=== PATIENT | female | born 1960 | race Caucasian/White ===

== ENCOUNTER 2019-09-26 16:10 | Emergency (ER) | payer OTHER, SELFPAY ==
--- NOTE | ~2019-09-26 | CT_ITS ---
IMPRESSION: 1. Left UPJ 6 mm stone, mild obstructive nephropathy. 2. Left nephrolithiasis. EXAMINATION: CT abdomen pelvis w con EXAM DATE: 09/26/2019 17:47 INDICATION: Left lower quadrant pressure/pain. Nausea, elevated lactate. TECHNIQUE: Spiral CT of the abdomen and pelvis was performed following intravenous injection of 100 m L Omnipaque 350. Axial, coronal and sagittal images were reviewed. The dose-length product (DLP) fo r this examination was 707.05 mGy-cm. The exposure was tailored according to patient size (auto mA e xposure control), and iterative reconstruction (ASIR) was used as additional dose reduction technique . Comparison is made to prior examination from 05/27/2013. FINDINGS: There is a 6 mm stone in the left ureteropelvic junction, with mild obstructive nephropathy , and also delayed nephrogram. No other ureteral stones. There is a 1 cm left superior calyceal stone . The liver, spleen, adrenal glands and pancreas are unremarkable. Gallbladder is unremarkable. No biliary obstruction. The uterus is anteverted and morphologically normal. The bladder is unremark able. There is no retroperitoneal or pelvic lymphadenopathy. There is mild scattered arteriosclero tic disease. The appendix is normal. The stomach and small bowel are unremarkable. There is expected amount of c olonic stool. No free intraperitoneal gas. The heart is normal in size. There are no pericardial or pleural effusions. The lung bases are unremarkable. The bones are unremarkable. IMPRESSION: 1. Left UPJ 6 mm stone, mild obstructive nephropathy. 2. Left nephrolithiasis. Reviewed, dictated and finalized at location A.
[2019-09-26 16:22] VITALS: BP 163/88; PULSE 77; RESP 18; TEMP 36.4; O2SAT 98
--- NOTE | 2019-09-26 16:32 | ECG_ITS ---
Measurements Intervals [place] Rate: 77 P: 59 WI: 184 QRS: 82 QRSD: 91 T: 82 QT: 356 QTc: 403 Interpretive Statements SINUS RHYTHM INCOMPLETE RIGHT BUNDLE BRANCH BLOCK DELAYED PRECORDIAL R/S TRANSITION NONSPECIFIC T-WAVE ABNORMALITY- ANT/HIGH LAT LEADS BASELINE ARTIFACT- I, II, III, AVR, AVL, AVF, V4-V6 BORDERLINE ECG Electronically Signed On 09-26-2019 17:05:44 CDT by Uriel Plunkett D.O.
[2019-09-26 16:45] LABS: Hematocrit 36.8 % (35.0-49.0); Hemoglobin 12.6 g/dL (12.0-15.0); Mean Corpuscular HGB Conc 34.2 g/dL (32.0-36.0); Mean Corpuscular Volume 90.4 fL (78.0-102.0); Mean Platelet Volume 10.2 fl (9.2-11.8); Platelet Count Result 236 K/mm3 (150-420); Red Blood Count 4.07 M/mm3 (4.20-5.40); Red Cell Distribution Width 12.6 % (11.6-14.4); White Blood Count 12.6 K/mm3 (4.8-10.8)
[2019-09-26] MEDS: SODIUM CHLORIDE 0.9% IV 1,000 ML 999 ML IV CONT (16:48)
[2019-09-26] MEDS: KETOROLAC 30 MG/ML VIAL (*BKC) IV PUSH (16:49)
[2019-09-26] MEDS: ONDANSETRON INJ 4 MG/2 ML VIAL IV PUSH (16:50)
[2019-09-26 17:00] VITALS: BP 136/73; PULSE 94; RESP 18; O2SAT 97
[2019-09-26 17:00] LABS: Partial Thromboplastin Time 30.6 SEC (22.3-31.6); Prothrombin Time 10.2 Seconds (9.64-11.0)
[2019-09-26 17:02] LABS: Band Neutrophils Percent 0 % (0-6); Basophils Percent Manual 0 % (0-1); Eosinophils Absolute Manual 2.14 K/mm3 (0.02-0.5); Eosinophils Percent Manual 17 % (1-6); Lymphocytes Absolute Manual 2.01 K/mm3 (1.1-4.5); Lymphocytes Percent Manual 16 % (18-44); Monocytes Percent Manual 4 % (3-9); Neutrophils Absolute Manual 7.93 K/mm3 (1.7-7.2); Neutrophils Percent Manual 63 % (46-73); Platelet Estimate Adequate (Adequate); Total Cells Counted 100
[2019-09-26 17:04] LABS: Lactic Acid Reflex 2.3 mmol/L (0.4-2.0)
[2019-09-26 17:13] LABS: Alanine Aminotransferase 14 U/L (14-59); Albumin Level 3.9 g/dL (3.4-5.0); Alkaline Phosphatase 64 U/L (46-116); Anion Gap 12 mmol/L (8-16); Aspartate Amino Transferase 14 U/L (15-37); Bilirubin,Total 0.4 mg/dL (0.00-1.00); Blood Urea Nitrogen 17 mg/dL (7-18); Carbon Dioxide 23 mmol/L (21-32); Chloride 103 mmol/L (98-108); Estimated CRCL calculation 46 ml/min; Estimated Glomerular Filt Rate 49; Glucose 152 mg/dL (70-99); Lipase 127 U/L (73-393); Osmolality Calculated 290 mOsm/kg (285-295); Potassium 4.1 mmol/L (3.5-5.1); Sodium 138 mmol/L (136-145); Total Protein 7.4 g/dL (6.4-8.2)
[2019-09-26 17:14] LABS: Troponin I < 0.02 ng/mL (0.00-0.056)
--- NOTE | 2019-09-26 17:53 | ED.ABDPAIN ---
HPI - Abdominal Pain General Chief Complaint: Abdominal Pain Stated Complaint: side pains Source: patient Mode of arrival: ambulatory Limitations: no limitations History of Present Illness HPI narrative: This is a 59-year-old female that presents with left lower quadrant abdominal pain with some dullness and currently no radiation of her pain localized in the left lower quadrant with nausea no vomiting, there is no diarrhea or constipation denies any chest pain or shortness of breath, no fever or chills. Patient has a history of hypertension, diabetes and hyperlipidemia. Patient also denies having dysuria or hematuria. MD elicited complaint: abdominal pain Pertinent past history: none Onset (ago): day(s) Pain Consistency: constant Location: LLQ Severity: moderate Pain scale (0-10): 7 Quality: dull Radiation: LLQ Exacerbating factors: nothing Relieving factors: nothing Associated symptoms: nausea Related Data Allergies Allergy/AdvReac Type Severity Reaction Status Date / Time chlorhexidine Allergy Unknown rash Verified 09/26/19 16:53 cyclobenzaprine Allergy Unknown rash Verified 09/26/19 16:53 Penicillins Allergy Unknown rash Verified 09/26/19 16:53 erythromycin base Allergy rash Verified 09/26/19 16:53 Sulfa (Sulfonamide Allergy [place] like Verified 09/26/19 16:53 Antibiotics) bugs crawling CYCLOBENZAPRINE HCL Allergy Unknown rash Uncoded 09/26/19 16:53 Review of Systems Review of Systems: All systems reviewed & are unremarkable except as noted in HPI and below PMFSH Past Medical History Medical History Coronary arteriosclerosis Dyslipidemia Essential hypertension Hypothyroidism (acquired) Type 2 diabetes mellitus with other circulatory complications Surgical History Surgical History History of section x 2 History of endometrial ablation History of tubal ligation Hx of breast reduction, elective Hx of CABG Family History Family History Father Hypertension Family history of bronchitis Patient's father is Family history of cardiovascular disease Acute myocardial infarction Grandparent Diabetes mellitus Mother Family history of thyroid disease Family history of hypothyroidism Other Family history of Alzheimer's disease Social History Social History Smoking status: Former smoker Second hand tobacco smoke exposure: No Smoking end date: 02/14/12 Alcohol intake: never Gender identity (if verbalized by the patient): Female Course Course Emergency Course: Reassessment of patient's pain, patient states that she is doing much better with some the pain medicine given, discussed the findings of the CT scan which showed that she has a kidney stone and will prescribe medication and advised to follow-up with her primary care physician. Vital Signs Vital signs: Vital Signs Temperature 36.4 C 09/26/19 16:22 Pulse Rate 77 09/26/19 16:22 Respiratory Rate 18 09/26/19 16:22 Blood Pressure 163/88 H 09/26/19 16:22 Pulse Oximetry 98 09/26/19 16:22 Temperature 36.4 C 09/26/19 16:22 Pulse Rate 94 09/26/19 17:00 Respiratory Rate 18 09/26/19 17:00 Blood Pressure 136/73 09/26/19 17:00 Pulse Oximetry 97 09/26/19 17:00 MDM - Abdominal Pain Lab Data Attestation: I reviewed the patient's lab results. Result diagrams: 09/26/19 16:40 09/26/19 16:40 Labs: Lab Results 09/26/19 09/26/19 09/26/19 Range/Units 16:40 16:40 16:40 WBC 12.6 H (4.8-10.8) K/mm3 RBC 4.07 L (4.20-5.40) M/mm3 Hgb 12.6 (12.0-15.0) g/dL Hct 36.8 (35.0-49.0) % MCV 90.4 (78.0-102.0) fL MCH 31.0 (27.0-31.0) pg MCHC 34.2 (32.0-36.0) g/dL RDW 12.6 (11.6-14.4) % Plt Count
[2019-09-26 18:40] VITALS: BP 128/68; PULSE 88; RESP 16; O2SAT 98
[2019-09-26 19:42] LABS: Reflex Lactic Acid Yes or No Add Lactic
== END 2019-09-26 18:40 | disposition home or self-care (01) ==
PROVIDERS: Emergency Provider Emergency Medicine; PCP Internal Medicine
DX: N21.9 Calculus of lower urinary tract, unspecified (principal)
CPT/HCPCS: 36415; 74177; 80053; 83605; 83690; 84484; 85025; 85610; 85730; 93005; 96361; 96374; 96375; 99284; J1885; J2405; J7030; Q9965

== ENCOUNTER 2019-09-30 13:55 | Emergency (ER) | payer OTHER, SELFPAY ==
--- NOTE | ~2019-09-30 | CT_ITS ---
EXAMINATION: CT abdomen pelvis wo con DATE: 09/30/2019 14:45 INDICATION: Left flank pain TECHNIQUE: Computed tomography (CT) of the abdomen and pelvis was performed without intravenous contr ast. The dose-length product (DLP) was 204.02 mGy-cm. Automated exposure control and iterative recons truction technique were employed. COMPARISON: 09/26/2019 FINDINGS: The previously described 6 mm left ureteropelvic junction stone has migrated to the uretero vesicular junction. There is mild to moderate left hydroureteronephrosis. The lung bases are clear. T he heart size is normal. The liver, spleen, pancreas, gallbladder, and adrenal glands are normal. The right kidney is unremarkable. There is a stable 10 mm nonobstructing stone of the left kidney upper pole. No pathologically enlarged abdominal or pelvic lymph nodes are identified. There is calcified a therosclerosis of the aorta and many of the other arteries. There is no free intraperitoneal gas or e vidence of bowel obstruction. There is mild lumbar spondylosis. A tiny fat-containing umbilical herni a is noted. IMPRESSION: 1. Interval distal migration of the previously described 6 mm left UPJ stone now identified at the ur eterovesicular junction. Mild to moderate left hydroureteronephrosis is unchanged. 2. Nonobstructing left nephrolithiasis. Reviewed, dictated and finalized at location A. IMPRESSION: 1. Interval distal migration of the previously described 6 mm left UPJ stone no w identified at the ureterovesicular junction. Mild to moderate left hydrourete ronephrosis is unchanged. 2. Nonobstructing left nephrolithiasis.
[2019-09-30 14:05] VITALS: BP 137/78; PULSE 86; RESP 16; TEMP 36.9; O2SAT 99
[2019-09-30 14:23] LABS: Add Urine Microscopic? YES; Appearance Urine Clear (Clear); Bilirubin Urine Negative (Negative); Blood Urine 2+ (Negative); Color Urine Yellow (Yellow); Glucose Urine UA Negative (Negative); Ketones Urine Trace (Negative); Leukocyte Esterase Ur Negative (Negative); Nitrate Urine Negative (Negative); Protein Urine 2+ (Negative); Specific Grav Ur >= 1.030 (1.010-1.020); Urobilinogen Urine 0.2 mg/dL (0.2-1.0); pH Urine 5.5 (5.0-8.0)
[2019-09-30 14:26] LABS: Bacteria Urine 1+ /hpf; Squamous Epithelial Cell Urine Few /hpf (Few); WBC Urine None seen /hpf (0-3)
[2019-09-30 14:29] LABS: Hematocrit 34.1 % (35.0-49.0); Hemoglobin 11.8 g/dL (12.0-15.0); Mean Corpuscular HGB Conc 34.6 g/dL (32.0-36.0); Mean Corpuscular Hemoglobin 31.1 pg (27.0-31.0); Mean Corpuscular Volume 89.7 fL (78.0-102.0); Mean Platelet Volume 10.1 fl (9.2-11.8); Platelet Count Result 218 K/mm3 (150-420); Red Cell Distribution Width 12.4 % (11.6-14.4); White Blood Count 9.1 K/mm3 (4.8-10.8)
[2019-09-30] MEDS: ONDANSETRON INJ 4 MG/2 ML VIAL IV PUSH (14:30)
[2019-09-30] MEDS: SODIUM CHLORIDE 0.9% IV 1,000 ML 999 ML IV CONT (14:30)
[2019-09-30] MEDS: KETOROLAC 30 MG/ML VIAL (*BKC) IV PUSH (14:30)
[2019-09-30 14:44] LABS: Alanine Aminotransferase 12 U/L (14-59); Albumin Level 3.3 g/dL (3.4-5.0); Alkaline Phosphatase 52 U/L (46-116); Anion Gap 13 mmol/L (8-16); Aspartate Amino Transferase 13 U/L (15-37); Bilirubin,Total 0.7 mg/dL (0.00-1.00); Blood Urea Nitrogen 21 mg/dL (7-18); Carbon Dioxide 24 mmol/L (21-32); Chloride 103 mmol/L (98-108); Estimated Glomerular Filt Rate 30; Glucose 104 mg/dL (70-99); Osmolality Calculated 293 mOsm/kg (285-295); Potassium 3.8 mmol/L (3.5-5.1); Sodium 140 mmol/L (136-145); Total Protein 7.1 g/dL (6.4-8.2)
--- NOTE | 2019-09-30 15:22 | ED.BACK ---
HPI - Back Pain/Injury General Chief Complaint: Back Pain/Injury Stated Complaint: ambulance Source: patient History of Present Illness HPI Narrative: this is a 59-year-old female presents with some left-sided flank pain radiating into her left lower abdomen and groin area had similar symptoms approximately 5 days ago was diagnosed with a kidney stone. Patient went home did call her primary care physician and I did receive a call back. Currently the patient's pain level about 7 out of 10 with no dysuria no hematuria currently no nausea vomiting, no fever or chills. The patient was seen on September 25 and was treated with with some Toradol and Zofran and IV fluids. The patient was sent home with pain medication and called EMS because she was having increased pain that was similar on the left side. MD elicited complaint: back pain Pertinent past history: prior back pain Severity: moderate Pain scale (0-10): 8 Similar Symptoms Previously: Yes Quality: dull Location: left flank Radiation: abdomen Relieving factors: medication Related Data Allergies Allergy/AdvReac Type Severity Reaction Status Date / Time chlorhexidine Allergy Unknown rash Verified 09/26/19 16:53 cyclobenzaprine Allergy Unknown rash Verified 09/26/19 16:53 Penicillins Allergy Unknown rash Verified 09/26/19 16:53 erythromycin base Allergy rash Verified 09/26/19 16:53 Sulfa (Sulfonamide Allergy [place] like Verified 09/26/19 16:53 Antibiotics) bugs crawling CYCLOBENZAPRINE HCL Allergy Unknown rash Uncoded 09/26/19 16:53 Review of Systems Review of Systems: All systems reviewed & are unremarkable except as noted in HPI and below PMFSH Social History Social History Smoking status: Former smoker Second hand tobacco smoke exposure: No Smoking end date: 02/14/12 Alcohol intake: never Gender identity (if verbalized by the patient): Female Exam Const: General: cooperative, healthy appearing, comfortable, no acute distress, well developed and alert HENMT: Head: normal to inspection Eyes: General: appearance normal, both eyes and all related structures Chest: Chest palpation & inspection: normal inspection of the chest and normal palpation of entire chest wall Resp: Effort & Inspection: normal respiratory effort and able to speak in complete sentences GI: Inspection: normal to inspection GI Palp: Yes abdominal tenderness and Yes Tenderness to palpation present (GI) : General: Yes CVA tenderness ( Left-sided) on the left External Female Exam: normal external appearance Neuro: General: oriented to person, oriented to place, oriented to time, patient oriented x3 and gait normal Extrem: General: normal to inspection, full ROM and capillary refill normal Psych: Appearance: grossly normal Course Course Emergency Course: discussed case with patient informed the patient that I did talk with some urology and urologist is able to see the patient tomorrow in his clinic for further evaluation and treatment. Vital Signs Vital signs: Vital Signs Temperature 36.9 C 09/30/19 14:05 Pulse Rate 86 09/30/19 14:05 Respiratory Rate 16 09/30/19 14:05 Blood Pressure 137/78 09/30/19 14:05 Pulse Oximetry 99 09/30/19 14:05 Temperature 36.9 C 09/30/19 14:05 Pulse Rate 86 09/30/19 14:05 Respiratory Rate 16 09/30/19 14:05 Blood Pressure 137/78 09/30/19 14:05 Pulse Oximetry 99 09/30/19 14:05 MDM - Back Pain/Injury Lab Data Result diagrams: 09/30/19 14:25 09/30/19 14:25 Labs: Lab Results 09/30/19 09/30/19 09/30/19 Range/Units 14:11 14:25 14:25 WBC 9.1 (4.8-10.8) K/mm3 RBC 3.80 L (4.20-5.40) M/mm3 Hgb 11.8 L (12.0-15.0) g/dL Hct 34.1 L (35.0-49.0) % MCV 89.7 (78.0-102.0) fL MCH 31.1 H (27.0-31.0) pg MCHC 34.6 (32.0-36.0) g/dL RDW 12.4 (11.6-14.4) % Plt Count 218 (150-420) K/mm3 M
[2019-09-30 16:17] VITALS: BP 126/71; PULSE 77; O2SAT 98
== END 2019-09-30 16:19 | disposition home or self-care (01) ==
PROVIDERS: Emergency Provider Emergency Medicine; PCP Internal Medicine
DX: N20.0 Calculus of kidney (principal)
CPT/HCPCS: 36415; 74176; 80053; 81001; 85027; 96361; 96374; 96375; 99282; 99284; J1885; J2405; J7030

== ENCOUNTER 2019-10-02 02:45 | Outpatient (CLI) | payer OTHER, SELFPAY ==
[2019-10-02 18:39] LABS: SARS-CoV-2 RNA PCR Negative
== END 2019-10-02 02:46 | disposition home or self-care (01) ==
LOC: ANHCOVIDDT 02:45
PROVIDERS: PCP Internal Medicine; Visit Provider Urology
DX: Z01.812 Encounter for preprocedural laboratory examination (principal); Z20.828 Contact with and (suspected) exposure to other viral communicable diseases
CPT/HCPCS: 87635; C9803; U0003

== ENCOUNTER 2019-10-03 09:58 | Outpatient (CLI) | payer OTHER, SELFPAY ==
--- NOTE | ~2019-10-03 | XR_ITS ---
EXAMINATION: XR abdomen/kub 1V EXAM DATE: 10/03/2019 10:29 INDICATION: Left nephrolithiasis. TECHNIQUE: Frontal projection(s) of the abdomen for interpretation. Comparison is made to prior exami nation from 09/30/2019 CT. FINDINGS: There is approximately 8 mm left superior calyceal stone. CT dated 09/30/2019 demonstrated both this and the left UVJ 6 mm stone. The left UVJ stone was well visualized on the human service worker image obtained with that CT abdomen, and is not p resent in the pelvis on this exam. It may have passed if patient's symptoms have resolved. Nonobstructive bowel gas pattern. Mild to moderate bony degenerative changes. Mild lumbar ductal scol iosis. IMPRESSION: 1. Left UVJ visualized on prior CT human service worker not identified on this image. Clinical correlation. 2. Left nephrolithiasis. Reviewed, dictated and finalized at location B. IMPRESSION: 1. Left UVJ visualized on prior CT human service worker not identified on this image. Clinica l correlation. 2. Left nephrolithiasis.
== END 2019-10-03 09:59 | disposition home or self-care (01) ==
PROVIDERS: PCP Internal Medicine; Visit Provider Urology
DX: N20.0 Calculus of kidney (principal)
CPT/HCPCS: 74018

== ENCOUNTER 2019-12-26 07:36 | Outpatient (NON) | payer OTHER, SELFPAY ==
[2019-12-27 00:45] LABS: SARS-CoV-2 RNA PCR Negative
== END 2019-12-26 07:37 ==
LOC: ANHCOVIDDT 07:37
PROVIDERS: PCP Internal Medicine; Visit Provider Nurse Practitioner
DX: R05 Cough (principal); Z20.828 Contact with and (suspected) exposure to other viral communicable diseases
CPT/HCPCS: 87635; C9803; U0003

== ENCOUNTER 2020-01-29 13:55 | Outpatient (CLI) | payer OTHER, SELFPAY ==
--- NOTE | ~2020-01-29 | XR_ITS ---
XR abdomen/kub 1V 01/29/2020 14:08 Indication: Left kidney stones Procedure: KUB Comparison: 10/03/2019 Findings: Bowel gas pattern is nonobstructive. There are left renal stones. No acute osseous abnormal ity. There are degenerative changes of the hips. There are pelvic phleboliths. No acute osseous abnor mality. Largest left renal stone measures approximately 8 mm. Impression: 1: Left nephrolithiasis. Reviewed, dictated and finalized at location A. SSEMBLIES WIRER Impression: 1: Left nephrolithiasis.
== END 2020-01-29 13:56 | disposition home or self-care (01) ==
LOC: ANHIMG 14:01
PROVIDERS: PCP Internal Medicine; Visit Provider Urology
DX: N20.0 Calculus of kidney (principal)
CPT/HCPCS: 74018

== ENCOUNTER 2020-06-05 14:11 | Outpatient (CLI) | payer OTHER, SELFPAY ==
--- NOTE | ~2020-06-05 | US_ITS ---
EXAMINATION: US soft tissue lower back DATE: 06/05/2020 14:44 INDICATION: Mass/lump at the left side of the lower back TECHNIQUE: Multiple grayscale and Doppler ultrasound images of the region of concern at the left lumb ar paraspinal region of concern were obtained. 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 Reviewed, dictated and finalized at location A.
== END 2020-06-05 14:12 | disposition home or self-care (01) ==
PROVIDERS: PCP Internal Medicine; Visit Provider Clinical Nurse Specialist
DX: R22.2 Localized swelling, mass and lump, trunk (principal)
CPT/HCPCS: 76705

== ENCOUNTER 2020-09-19 10:16 | Outpatient (CLI) | payer OTHER, SELFPAY ==
--- NOTE | ~2020-09-19 | MM_ITS ---
EXAMINATION: MM screening angela BI w latasha HISTORY: Screening TECHNIQUE: Craniocaudal and mediolateral oblique 3-D tomosynthesis images were obtained and synthetic 2-D images were generated. CAD analysis was submitted and interpreted. COMPARISON: Comparison to multiple prior studies sequentially, with oldest reviewed study dated 08/26. BREAST PARENCHYMAL COMPOSITION: There are scattered areas of fibroglandular density. FINDINGS: There is no evidence of suspicious mass, calcification, or architectural distortion to sugg est malignancy in either breast. There has been no suspicious interval change. IMPRESSION: 1. No mammographic evidence of malignancy. 2. Recommend routine screening mammography in one year. BI-RADS Category 1: Negative Reviewed, dictated and finalized at location A.
== END 2020-09-19 10:17 | disposition home or self-care (01) ==
PROVIDERS: PCP Internal Medicine; Visit Provider Clinical Nurse Specialist
DX: Z12.31 Encounter for screening mammogram for malignant neoplasm of breast (principal)
CPT/HCPCS: 77063; 77067

== ENCOUNTER 2020-09-26 19:30 | Emergency (ER) | payer OTHER, SELFPAY ==
[2020-09-26 19:45] VITALS: BP 143/72; PULSE 69; RESP 18; TEMP 36.3; O2SAT 97
--- NOTE | 2020-09-26 20:09 | ED.SKABFB ---
HPI - Skin/Abscess/Foreign Bdy General Chief complaint: Skin/Abscess/Foreign Body Stated complaint: Rash on neck and moving towards face Time Seen by Provider: 09/26/20 20:09 Source: patient Mode of arrival: ambulatory Limitations: no limitations History of Present Illness HPI narrative: 60-year-old woman with a history of coronary artery disease, hypertension, hypothyroidism and type 2 diabetes comes in today complaining of a rash that has developed on her neck, more on the right than left, in the last few days. She states it is sometimes itchy. She states that seems to be going toward her face. She denies any new skin contacts. She was treated with antibiotics and steroids recently for presumed poison karel on her limbs and fluconazole for a yeast infection since. She states she feels like her neck is swollen but she has no difficulty swallowing, difficulty breathing, tongue swelling or lip swelling. She denies prior similar symptoms. Patient states the rash got worse when her collar was rubbing her neck, and while she was mowing the lawn this afternoon. She states the rash gets somewhat better with Benadryl. complaint: rash Onset (ago): day(s) Location: neck Severity: moderate Quality: pruritic Relieving factors: none Exacerbating factors: other (Aggravated when her collar rubs her neck.) Context: none Associated symptoms: itching Treatments prior to arrival: none Related Data Home Medications Medication Instructions Recorded Confirmed aspirin 81 mg PO DAILY 10/02/19 09/26/20 doxepin 10 mg PO HS PRN 10/02/19 09/26/20 Allergies Allergy/AdvReac Type Severity Reaction Status Date / Time erythromycin base Allergy Mild rash Verified 12/16/19 13:55 Macrolide Antibiotics Allergy Mild Rash Verified 12/16/19 13:55 Sulfa (Sulfonamide Allergy Mild Rash Verified 12/16/19 13:55 Antibiotics) chlorhexidine Allergy Unknown rash Verified 12/16/19 13:55 cyclobenzaprine Allergy Unknown rash Verified 12/16/19 13:55 Penicillins Allergy Unknown rash Verified 12/16/19 13:55 KETOLIDES Allergy Mild Rash Uncoded 12/16/19 13:55 Review of Systems Review of Systems: All systems reviewed & are unremarkable except as noted in HPI and below Constitutional: Constitutional: Denies chills and Denies fever(s) ENT: Denies nasal congestion and Denies sore throat Cardiovascular: Cardiovascular: Denies chest pain and Denies radiating jaw, neck or arm pain Respiratory: Respiratory: Denies cough, Denies dyspnea and Denies wheezing Gastrointestinal: Gastrointestinal: Denies abdominal pain, Denies nausea and Denies vomiting Musculoskeletal: Musculoskeletal: Denies back pain, Denies arthralgias and Denies joint swelling Integumentary/Breasts: Skin/Breast: Reports pruritus, Reports erythema and Reports rash Neurologic: Denies vertigo, Denies dizziness and Denies syncope Hematologic/Lymphatic: Hematologic/Lymphatic: Denies easy bleeding and Denies easy bruising Allergic/Immunologic: Allergic/Immunologic: Denies lip swelling, Reports throat swelling and Denies tongue swelling PMFSH Past Medical History Medical History Coronary arteriosclerosis Dyslipidemia Essential hypertension Hypothyroidism (acquired) Kidney stones Type 2 diabetes mellitus with other circulatory complications Surgical History Surgical History History of section x 2 History of endometrial ablation History of tubal ligation Hx of breast reduction, elective Hx of CABG Family History Family History Father Hypertension Family history of bronchitis Patient's father is Family history of cardiovascular disease Acute myocardial infarction Grandparent Diabetes mellitus Mother Family history of thyroid disease Family history of hypothyroidism Other Family history of
[2020-09-26] MEDS: predniSONE 20 MG TABLET 60 MG PO (20:37)
[2020-09-26 20:38] VITALS: BP 143/72; PULSE 69; RESP 20; TEMP 36.3; O2SAT 98
== END 2020-09-26 20:40 | disposition home or self-care (01) ==
PROVIDERS: Emergency Provider Emergency Medicine
DX: R21 Rash and other nonspecific skin eruption (principal)
CPT/HCPCS: 99283; J7512

== ENCOUNTER → 2020-11-27 09:30 | Outpatient (CLI) | payer OTHER, SELFPAY ==
[2020-11-27 17:47] LABS: SARS-CoV-2 RNA PCR Negative
== END ==
PROVIDERS: PCP Internal Medicine; Visit Provider Nurse Practitioner
DX: R11.2 Nausea with vomiting, unspecified (principal); Z20.822 Contact with and (suspected) exposure to COVID-19
CPT/HCPCS: C9803; U0003; U0005

== ENCOUNTER 2020-12-18 12:30 | Outpatient (CLI) | payer OTHER, SELFPAY ==
--- NOTE | ~2020-12-18 | US_ITS ---
EXAMINATION: US carotid duplex BI EXAM DATE: 12/18/2020 13:05 INDICATION: I65.29 - Occlusion and stenosis of unspecified carotid artery. TECHNIQUE: Grayscale, color and pulsed Doppler images of the cervical carotid arteries were obtained . The degree of vessel stenosis is placed in one of the following categories: normal, <50% stenosis, 50-69% stenosis, >=70% stenosis but less than near-occlusion, near-occlusion, or occlusion. Note that percent stenosis relative to normal distal artery lumen diameter is indirectly measured from velocit y measurements as described by Michael, et al. Radiology 2003; 229:340-346. Comparison is made to prior examination from 07/11/2017. FINDINGS: RIGHT SIDE: Right common carotid artery peak systolic velocity (PSV in cm/s): 95 Right bulb/internal carotid artery peak systolic velocity (PSV in cm/s): 77 Right internal carotid artery end diastolic velocity (EDV in cm/s): 27 Right ICA/CCA peak systolic ratio: 0.8 Right external carotid artery peak systolic velocity (PSV in cm/s): 79 Right vertebral artery antegrade flow: yes There is mild to moderate carotid bulb plaque. Velocity and Doppler waveforms in the common and internal carotid arteries is normal. LEFT SIDE: Left common carotid artery peak systolic velocity (PSV in cm/s): 87 Left bulb/internal carotid artery peak systolic velocity (PSV in cm/s): 117 Left internal carotid artery end diastolic velocity (EDV in cm/s): 36 Left ICA/CCA peak systolic ratio: 1.3 Left external carotid artery peak systolic velocity (PSV in cm/s): 149 Left vertebral artery antegrade flow: yes There is mild to moderate carotid bulb plaque. Velocity and Doppler waveforms in the common and internal carotid arteries is normal. IMPRESSION: 1. Less than 50 percent stenosis in the right internal carotid artery. 2. Less than 50 percent stenosis in the left internal carotid artery. Reviewed, dictated and finalized at location A.
== END 2020-12-18 12:31 | disposition home or self-care (01) ==
LOC: CHSIMG 12:31
PROVIDERS: PCP Internal Medicine; Visit Provider Internal Medicine Cardiovascular Disease
DX: I65.29 Occlusion and stenosis of unspecified carotid artery (principal)
CPT/HCPCS: 93880

== ENCOUNTER → 2021-05-04 08:27 | Outpatient (CLI) | payer OTHER, SELFPAY ==
[2021-05-04 11:11] LABS: SARS-CoV-2 RNA PCR Negative
== END ==
PROVIDERS: PCP Internal Medicine; Visit Provider Clinical Nurse Specialist
DX: J32.9 Chronic sinusitis, unspecified (principal); Z20.822 Contact with and (suspected) exposure to COVID-19
CPT/HCPCS: C9803; U0003; U0005

== ENCOUNTER 2021-05-06 11:23 | Outpatient (CLI) | payer OTHER, SELFPAY ==
--- NOTE | ~2021-05-06 | XR_ITS ---
XR chest 2V 05/06/2021 11:44 Indication: Cough and fever Procedure: 2 view chest Comparison: 11/29/2012 Findings: Status post median sternotomy for CABG. Heart size normal. There is right basilar airspace disease which may represent atelectasis or developing pneumonia. No pleural effusion, edema or pneumo thorax. Impression: 1: Focal right basilar airspace disease which may represent atelectasis and/or pneumonia. Reviewed, dictated and finalized at location A. Impression: 1: Focal right basilar airspace disease which may represent atelectasis and/or pneumonia.
== END 2021-05-06 11:24 | disposition home or self-care (01) ==
LOC: ANHIMG 11:28
PROVIDERS: PCP Internal Medicine; Visit Provider Clinical Nurse Specialist
DX: R05.9 Cough, unspecified (principal); R50.9 Fever, unspecified; R91.8 Other nonspecific abnormal finding of lung field
CPT/HCPCS: 71046

== ENCOUNTER 2021-05-14 08:43 | Outpatient (CLI) | payer OTHER, SELFPAY ==
--- NOTE | ~2021-05-14 | XR_ITS ---
EXAMINATION: XR chest 2V EXAM DATE: 05/14/2021 08:56 INDICATION: Worsening cough, low grade fevers, PNA x1 week. TECHNIQUE: Frontal and lateral projections of the chest obtained and reviewed. Comparison is made to prior examination from 05/06/2021. FINDINGS: Previously seen right basilar pneumonia has resolved. Lungs are clear. Sternotomy wires are present without findings to suggest sternal dehiscence. There are no pleural effusions. The cardio mediastinal silhouette is within normal limits. There is no pneumothorax suspected. The bones and s oft tissues are unremarkable. IMPRESSION: Interval resolution of previously seen right basilar pneumonia. Reviewed, dictated and finalized at location D.
== END 2021-05-14 08:44 | disposition home or self-care (01) ==
LOC: ANHIMG 08:47
PROVIDERS: PCP Internal Medicine; Visit Provider Clinical Nurse Specialist
DX: J18.9 Pneumonia, unspecified organism (principal)
CPT/HCPCS: 71046

== ENCOUNTER 2021-06-18 14:49 | Outpatient (CLI) | payer OTHER, SELFPAY ==
--- NOTE | ~2021-06-18 | DEXA_ITS ---
Bone Density Report Name: BARBRA CAGLE Age: 61 Sex: Female Ethnicity: White Date of : 1960 Indication: postmenopausal; screening for osteoporosis; Referring Provider: GALE SIMON Study: Bone densitometry was performed. Exam Date: June 18, 2021 Accession number: [id number] Bone Density: Region BMD T-score Z-score Classification AP Spine(L1, L2, L3) 1.083 0.6 1.9 Normal Femoral Neck (Left) 0.715 -1.2 0.0 Osteopenia Total Hip (Left) 0.952 0.1 1.0 Normal Femoral Neck (Right) 0.703 -1.3 -0.1 Osteopenia Total Hip (Right) 0.956 0.1 1.0 Normal Total Hip Mean 0.954 0.1 1.0 Normal World Health Organization criteria for BMD impression classify patients as: Normal (T-score at or above -1.0), Osteopenia (T-score between -1.0 and -2.5), or Osteoporosis (T-score at or below -2.5). 10-year Fracture Risk(1): Major Osteoporotic Fracture 7.2% Hip Fracture 0.5% Reported Risk Factors: [place] (), Neck BMD=0.703, BMI=28.8 (1) FRAX(R) Version 3.08. Fracture probability calculated for an untreated patient. Fracture probability may be lower if the patient has received treatment. Previous Exams: Region Exam Age BMD T-score BMD Change BMD Change Date g/cm2 vs Baseline vs Previous AP Spine (L1-L3) 06/18/2021 61 1.083 0.6 0.008 (0.8%) 0.008 (0.8%) 01/11/2017 56 1.075 0.5 Total Hip(Left) 06/18/2021 61 0.952 0.1 -0.052 (-5.2%) -0.052 (-5.2%) 01/11/2017 56 1.004 0.5 Total Hip(Right) 06/18/2021 61 0.956 0.1 -0.078 (-7.6%) -0.078 (-7.6%) 01/11/2017 56 1.034 0.8 *Denotes significance at 95% confidence level, LSC for AP Spine = 0.022 g/cm2, LSC for Total Hip = 0.027 g/cm2 Clinical Information Provided by Patient: Has used the following medications: Vitamin D Patient maximum height was 63 Menopause Age: 52 Drinks caffeinated beverages Onset of menses at age 15 Number of children 2 Impression: The patient has low bone mass, based on the Right Femoral Neck T-score. The patient has an estimated ten-year risk of hip fracture of 0.5% and an estimated ten-year risk of major fracture of 7.2%, based on the WHO FRAX algorithm. The BMD for the Total Hip(Left) decreased, changing by -5.2% since the last DXA exam. The BMD for the Total Hip(Right) decreased, changing by -7.6% since the last DXA exam. Discussion: BONE DENSITY IS LOW AT ONE OR MORE SKELETAL SITES. This patient's lowest T-score is low at
== END 2021-06-18 14:50 | disposition home or self-care (01) ==
PROVIDERS: PCP Internal Medicine; Visit Provider Obstetrics & Gynecology
DX: Z78.0 Asymptomatic menopausal state (principal); M85.852 Other specified disorders of bone density and structure, left thigh; M85.851 Other specified disorders of bone density and structure, right thigh
CPT/HCPCS: 77080

== ENCOUNTER → 2021-10-26 15:34 | Outpatient (CLI) | payer OTHER, SELFPAY ==
--- NOTE | ~2021-10-26 | XR_ITS ---
EXAM: XR shoulder LT min 2V DATE: 10/26/2021 15:49 HISTORY: M25.512 - Pain in left shoulder . COMPARISON: 10/16/2014. FINDINGS: Partially visualized sternotomy wires. Mediastinal vascular clips. Normal mineralization. N o fracture or dislocation. No lytic or blastic lesion. Mild degenerative change at the glenohumeral j oint. No erosion or periosteal change. Soft tissues within normal limits. IMPRESSION: Mild glenohumeral osteoarthritis, otherwise no significant radiographic abnormality detec edita in the left shoulder. Reviewed, dictated and finalized at location K. IMPRESSION: Mild glenohumeral osteoarthritis, otherwise no significant radiogra phic abnormality detected in the left shoulder.
--- NOTE | ~2021-10-26 | XR_ITS ---
EXAM: XR lumbar spine 2-3V DATE: 10/26/2021 15:49 HISTORY: M54.9 - Dorsalgia, unspecified . COMPARISON: None available. FINDINGS: 5 nonrib-bearing lumbar-type vertebral bodies. Pedicles intact. Slightly exaggerated lordo sis. Mild scoliosis. Normal vertebral body alignment. Vertebral body heights preserved. Mild disc spa ce narrowing at L3-4 through L5-S1. Mild sclerosis and hypertrophy in the lower lumbar facets. No fra cture or dislocation. Incidental note of degenerative disc disease in the lower thoracic spine. Ather osclerotic aortic calcification without evident aneurysm. Mild left and moderate right sacroiliitis. IMPRESSION: Mild lumbar scoliosis. Multilevel mild degenerative disc disease and facet arthropathy. M ild left and moderate right sacroiliitis. Reviewed, dictated and finalized at location K. IMPRESSION: Mild lumbar scoliosis. Multilevel mild degenerative disc disease an d facet arthropathy. Mild left and moderate right sacroiliitis.
== END ==
PROVIDERS: PCP Clinical Nurse Specialist; Visit Provider Clinical Nurse Specialist
DX: M19.012 Primary osteoarthritis, left shoulder (principal); M41.9 Scoliosis, unspecified; M51.36 Other intervertebral disc degeneration, lumbar region
CPT/HCPCS: 72100; 73030

== ENCOUNTER 2021-11-17 14:22 | Outpatient (CLI) | payer OTHER, SELFPAY ==
--- NOTE | ~2021-11-17 | MM_ITS ---
EXAMINATION: MM screening [facility] BI w [place] HISTORY: Screening mammogram TECHNIQUE: Craniocaudal and mediolateral oblique 3-D tomosynthesis images were obtained and synthetic 2-D images were generated. CAD analysis was submitted and interpreted. COMPARISON: 09/19/2020, 01/02/1917, 01/06/2016, 11/27/2013 BREAST PARENCHYMAL COMPOSITION: There are scattered areas of fibroglandular density. FINDINGS: There is a stable focal asymmetry in the upper outer quadrant of the right breast. No suspi cious mass, calcification, or architectural distortion are identified in either breast to suggest mal ignancy. There has been no suspicious interval change. IMPRESSION: 1. No mammographic evidence of malignancy. 2. Recommend routine screening mammography in one year. BI-RADS Category 2: Benign finding(s). Reviewed, dictated and finalized at location A.
== END 2021-11-17 14:23 | disposition home or self-care (01) ==
PROVIDERS: PCP Internal Medicine; Visit Provider Internal Medicine
DX: Z12.31 Encounter for screening mammogram for malignant neoplasm of breast (principal)
CPT/HCPCS: 77063; 77067

== ENCOUNTER 2021-11-19 08:32 | Outpatient (CLI) | payer OTHER, SELFPAY ==
--- NOTE | ~2021-11-19 | MR_ITS ---
EXAMINATION: MR lumbar spine wo con DATE: 11/19/2021 09:33 INDICATION: Lumbar degenerative joint disease. Low back pain. TECHNIQUE: Magnetic resonance imaging (MRI) of the lumbar spine was performed without intravenous con trast. Sequences included sagittal T2-weighted FSE, sagittal T2-weighted FS FSE, sagittal T1-weighted FSE, and axial T2-weighted FSE. COMPARISON: Lumbar spine radiographs 10/26/2021 FINDINGS: There is 11 degrees dextroscoliosis of lumbar spine. Vertebral body heights are normal. The re is mildly decreased disc height at L3-L4, L4-L5, and L5-S1. The distal spinal cord signal intensit y is normal. The conus medullaris is at T12-L1. The following disc levels are specifically discussed: L1-L2: The disc does not extend beyond the endplate margin. There is no facet joint osteoarthritis. T here is no neural foraminal stenosis. There is no central canal stenosis. L2-L3: There is a right foraminal protrusion. There is mild bilateral facet joint osteoarthritis. The re is mild right neural foraminal stenosis. There is no central canal stenosis. L3-L4: The disc is bulging and has an annular fissure. There is moderate and severe left facet joint osteoarthritis. There is mild bilateral neural foraminal stenosis. There is mild central canal stenos is. L4-L5: The disc is bulging and has an annular fissure. There is severe bilateral facet joint osteoart hritis. There is mild bilateral neural foraminal stenosis. There is mild central canal stenosis. L5-S1: The disc is bulging and has an annular fissure. There is moderate right and mild left facet kulwinder int osteoarthritis. There is mild bilateral neural foraminal stenosis. There is mild central canal st enosis. IMPRESSION: 1. Mild lumbar spondylosis. 2. Lumbar dextroscoliosis. Reviewed, dictated and finalized at location B.
== END 2021-11-19 08:33 | disposition home or self-care (01) ==
LOC: ANHIMG 08:34
PROVIDERS: PCP Internal Medicine; Visit Provider Clinical Nurse Specialist
DX: M47.817 Spondylosis without myelopathy or radiculopathy, lumbosacral region (principal); M48.07 Spinal stenosis, lumbosacral region; M54.40 Lumbago with sciatica, unspecified side
CPT/HCPCS: 72148

== ENCOUNTER 2021-12-09 15:49 | Outpatient (RCR) | payer OTHER, SELFPAY ==
--- NOTE | 2021-12-09 17:56 | PTOPEVAL1 ---
Assessment and note entered by Martha Kwon, PT Evaluation Information Assessment Status Evaluation Diagnosis Low Back Pain Onset 11/13/21 Subjective Information Lucy reports she started having low back pain about a month ago for unknown reasons. She started noticing a catch when she would sit back up from bending forward and numbness in her right leg when she would sit for too long. The symptoms were not improving so, she saw her primary care doctor who ordered a x-ray and MRI. The MRI showed 4 bulging discs and degenerative disc disease so she was referred to pain management. She saw pain management on 12/07/21 and had an injection in her left hip. She is noticing a small improvement in symptoms since the injection. She is also using OTC Tylenol for pain relief. She currently has no pain but feels limited with sitting, sleeping, bending, and lifting. Reported Pain Level Pain Score 0: Self Report Assessment PT Clinical Summary Lucy Cox presents with low back pain and MRI has shown 4 bulging discs and degenerative disc disease in the lumbar spine. She has difficulty with bending, lifting, prolonged sitting, and sleeping. She objectively demonstrates mild deficits in lumbar lateral flexion ROM, decreased core strength, decreased bilateral quadriceps flexibility, and positive left lumbar quadrant test. She will benefit from skilled PT to address these limitations. Plan of Care Interventions Electrical Stimulation,Hot Pack/Cold Pack,Manual Therapy,Mechanical Traction,Neuro Re-education, Patient/Caregiver Educati,Therapeutic Activities, Therapeutic Exercise PT Services Indicated Yes Treatment Frequency and 2 times a week for 12 visits Duration These treatments will address the objective and functional deficits as defined above. The patient will be advanced safely and appropriately in order for the patient to progress towards his/her prior level of function. Additional exercises will be introduced and as well as a comprehensive home exercise program upon discharge, if needed, ?to ensure carryover of functional gains achieved in the clinic. This treatment plan has been reviewed and agreement upon by the patient.
--- NOTE | 2022-01-18 16:01 | PTOPPROG ---
Assessment and note entered by Martha Kwon, PT Evaluation Information Assessment Status Progress Diagnosis Low Back Pain Onset 11/13/21 Subjective Information Lucy Cox reports her low back was doing significantly better until today when she had to go back to a position at work where she is required to lift more weight from an awkward position. She notes pain as a 5/10 upon arrival but has no pain following heat and electrical stimulation. She previously was able to perform all activity without pain. Assessment PT Clinical Summary Lucy Cox has completed 11 out of 12 skilled PT visits. 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 She notes an increase in pain with this activity. She was educated on proper body mechanics and abdominal bracing for lifting. She is demonstrating tenderness at the left SIJ today and mild deficits in core strength. She does have improved lumbar ROM, improved core strength, and better understanding of proper body mechanics. She will follow up with her referring physician on and has one pending PT visit on 01/20/22, possible discharge after follow up with physician dependent on her symptoms. Plan of Care PT Services Indicated Yes Treatment Frequency and Assess for possible discharge next visit. Duration These treatments will address the objective and functional deficits as defined above. The patient will be advanced safely and appropriately in order for the patient to progress towards his/her prior level of function. Additional exercises will be introduced and as well as a comprehensive home exercise program upon discharge, if needed, ?to ensure carryover of functional gains achieved in the clinic. This treatment plan has been reviewed and agreement upon by the patient.
--- NOTE | 2022-03-31 14:34 | PCPTNOTE ---
03/31/22: Refer to formal reassessment dated 01/18/22 for most recent sujective and objective information. Pt discharged 01/20/22.
== END 2022-01-20 18:00 | disposition home or self-care (01) ==
LOC: CHSPT 15:49
DX: M54.50 Low back pain, unspecified (principal)
CPT/HCPCS: 97014; 97110; 97140; 97161; G0283

== ENCOUNTER 2021-12-22 16:46 | Emergency (ER) | payer OTHER, SELFPAY ==
[2021-12-22 16:50] VITALS: BP 180/85; PULSE 78; RESP 16; TEMP 36.4; O2SAT 100
--- NOTE | 2021-12-22 17:48 | ED.GENADULT ---
HPI - General Adult General Chief complaint: Wound/Laceration Stated complaint: left hand, ring finger injury Time Seen by Provider: 12/22/21 17:39 History of Present Illness HPI narrative: Lucy is a 61F with a PMH of HTN, carotid stenosis, HypoT, DMII, HLD and CAD that presented to the ED after slicing her left ring finger on a meat scrubber. She needs a Tdap. She has no other injuries. Related Data Home Medications Medication Instructions Recorded Confirmed aspirin 81 mg tablet,delayed 81 mg PO DAILY 10/02/19 12/22/21 release cholecalciferol (vitamin D3) 50 50 mcg PO DAILY 05/20/21 12/22/21 mcg (2,000 unit) capsule Allergies Allergy/AdvReac Type Severity Reaction Status Date / Time erythromycin base Allergy Mild rash Verified 12/22/21 17:05 Macrolide Antibiotics Allergy Mild Rash Verified 12/22/21 17:05 Sulfa (Sulfonamide Allergy Mild Rash Verified 12/22/21 17:05 Antibiotics) chlorhexidine Allergy Unknown rash Verified 12/22/21 17:05 cyclobenzaprine Allergy Unknown rash Verified 12/22/21 17:05 Penicillins Allergy Unknown rash Verified 12/22/21 17:05 KETOLIDES Allergy Mild Rash Uncoded 12/20/21 13:13 Review of Systems Review of Systems: All systems reviewed & are unremarkable except as noted in HPI and below PMFSH Past Medical History Medical History Coronary arteriosclerosis Dyslipidemia Essential hypertension Genital herpes Hypothyroidism (acquired) Kidney stones Type 2 diabetes mellitus with other circulatory complications Surgical History Surgical History History of section x 2 History of endometrial ablation History of tubal ligation Hx of breast reduction, elective Hx of CABG Family History Family History Father Hypertension Family history of bronchitis Patient's father is Family history of cardiovascular disease Acute myocardial infarction Grandparent Diabetes mellitus Mother Family history of thyroid disease Family history of hypothyroidism Other Family history of Alzheimer's disease Social History Social History Years smoked: 25 Smoking status: Never smoker Second hand tobacco smoke exposure: No Smoking end date: 02/14/12 Additional smoking assessment comments: QUIT OVER 7 YEARS AGO Alcohol intake: never Gender identity (if verbalized by the patient): Female Spiritual care concerns: No Exam Const: General: healthy appearing and no acute distress Nutritional Appearance: well nourished Orientation/consciousness: patient oriented x3 HENMT: Head: normal to inspection Ears: external ears normal Face/Nose/Sinus: Normal external nose present Eyes: Conjunctivae: conjunctivae normal Pupils: Equal, round and reactive pupils present EOM: EOMs intact bilaterally Chest: Chest palpation & inspection: normal inspection of the chest Resp: Effort & Inspection: normal respiratory effort Cardio: Rate: regular rate Rhythm: regular rhythm Skin: Other: 1 cm shallow laceration on the tip of the left ring finger Course Vital Signs Vital signs: Vital Signs Temperature 97.5 F L 12/22/21 16:50 Pulse Rate 78 12/22/21 16:50 Respiratory Rate 16 12/22/21 16:50 Blood Pressure 180/85 H 12/22/21 16:50 Pulse Oximetry 100 12/22/21 16:50 Oxygen Delivery Room Air 12/22/21 16:50 Temperature 99 F 12/22/21 18:27 Pulse Rate 78 12/22/21 18:27 Respiratory Rate 18 12/22/21 18:27 Blood Pressure 130/80 12/22/21 18:27 Pulse Oximetry 99 12/22/21 18:27 Oxygen Delivery Room Air 12/22/21 18:27 Procedures Laceration Laceration 1: Date: 12/22/21 Site: hand (left ring finger ) Size (cm): 1 Description: linear Depth: simple, single layer Lo
[2021-12-22] MEDS: LIDOCAINE HCL 1% LOCAL INJ 10 ML VIAL 2 ML INFILTRATE (18:01)
[2021-12-22] MEDS: TETANUS,DIPHTHERIA,AC PERTUSSIS ADULT 0.5 ML (ADACEL) IM (18:24)
[2021-12-22 18:27] VITALS: BP 130/80; PULSE 78; RESP 18; TEMP 37.2; O2SAT 99
== END 2021-12-22 18:29 | disposition home or self-care (01) ==
PROVIDERS: Emergency Provider Family Medicine
DX: S61.215A Laceration without foreign body of left ring finger without damage to nail, initial encounter (principal); W45.8XXA Other foreign body or object entering through skin, initial encounter
CPT/HCPCS: 12001; 90471; 90715; 99283

== ENCOUNTER 2021-12-30 15:45 | Emergency (ER) | payer OTHER, SELFPAY ==
[2021-12-30 15:58] VITALS: BP 161/89; PULSE 60; RESP 20; TEMP 36.1; O2SAT 99
--- NOTE | 2021-12-30 16:10 | ED.WOUNDLAC ---
HPI - Wound/Laceration General Chief Complaint: Wound/Laceration Stated Complaint: needs stitches removed Time Seen by Provider: 12/30/21 16:02 Source: patient Mode of arrival: ambulatory Limitations: no limitations History of Present Illness HPI narrative: patient here today with wound check has sutures in her left ring finger the distal tip currently appears losing and still not well approximated it is throbbing with no redness no tenderness with palpation no losing no fever chills. Onset (ago): day(s) Place: work Related Data Home Medications Medication Instructions Recorded Confirmed aspirin 81 mg tablet,delayed 81 mg PO DAILY 10/02/19 12/22/21 release cholecalciferol (vitamin D3) 50 50 mcg PO DAILY 05/20/21 12/22/21 mcg (2,000 unit) capsule Allergies Allergy/AdvReac Type Severity Reaction Status Date / Time erythromycin base Allergy Mild rash Verified 12/30/21 16:11 Macrolide Antibiotics Allergy Mild Rash Verified 12/30/21 16:11 Sulfa (Sulfonamide Allergy Mild Rash Verified 12/30/21 16:11 Antibiotics) chlorhexidine Allergy Unknown rash Verified 12/30/21 16:11 cyclobenzaprine Allergy Unknown rash Verified 12/30/21 16:11 Penicillins Allergy Unknown rash Verified 12/30/21 16:11 KETOLIDES Allergy Mild Rash Uncoded 12/30/21 16:11 Review of Systems Review of Systems: All systems reviewed & are unremarkable except as noted in HPI and below PMFSH Past Medical History Medical History Coronary arteriosclerosis Dyslipidemia Essential hypertension Genital herpes Hypothyroidism (acquired) Kidney stones Type 2 diabetes mellitus with other circulatory complications Surgical History Surgical History History of section x 2 History of endometrial ablation History of tubal ligation Hx of breast reduction, elective Hx of CABG Family History Family History Father Hypertension Family history of bronchitis Patient's father is Family history of cardiovascular disease Acute myocardial infarction Grandparent Diabetes mellitus Mother Family history of thyroid disease Family history of hypothyroidism Other Family history of Alzheimer's disease Social History Social History Years smoked: 25 Smoking status: Never smoker Second hand tobacco smoke exposure: No Smoking end date: 02/14/12 Additional smoking assessment comments: QUIT OVER 7 YEARS AGO Alcohol intake: never Gender identity (if verbalized by the patient): Female Spiritual care concerns: No Exam Const: General: healthy appearing Nutritional Appearance: well nourished Orientation/consciousness: patient oriented x3 Limitations: no limitations HENMT: Head: normal to inspection Face and sinus: normal facial exam Eyes: Conjunctivae: conjunctivae normal Pupils: Equal, round and reactive pupils present EOM: EOMs intact bilaterally Resp: Effort & Inspection: normal respiratory effort Auscultation: clear to auscultation bilaterally Cardio: Rate: regular rate Rhythm: regular rhythm GI: GI Palp: Yes Soft to palpation Auscultation: normal bowel sounds Skin: General skin exam: normal color Wounds: wounds noted Other: Still oozing with some blood and sutures in place Neuro: General: patient oriented x3 Cranial nerves: Yes Nystagmus not present Extrem: General: normal to inspection Psych: Mental Status: mental status grossly normal Affect: normal affect Course Course Emergency Course: sutures not ready to be removed advised patient to return to ER or primary care physician within the next 2 to 3 days for sutures to be re-evaluated and possibly removed at that time. Vital Signs Vital signs: Vital Signs Temperature 36.1 C L 12/30/21 15:58 Pulse Rate 6
== END 2021-12-30 16:31 | disposition home or self-care (01) ==
LOC: CHSED 16:21
PROVIDERS: Emergency Provider Emergency Medicine
DX: Z48.00 Encounter for change or removal of nonsurgical wound dressing (principal)
CPT/HCPCS: 99281

== ENCOUNTER 2022-01-02 10:40 | Emergency (ER) | payer OTHER, SELFPAY ==
[2022-01-02 10:43] VITALS: BP 162/83; PULSE 79; RESP 18; TEMP 36.3; O2SAT 99
--- NOTE | 2022-01-02 10:47 | ED.WOUNDLAC ---
HPI - Wound/Laceration General Chief Complaint: Skin/Abscess/Foreign Body Stated Complaint: stiches removal Time Seen by Provider: 01/02/22 10:48 Source: patient and RN notes reviewed Mode of arrival: ambulatory Limitations: no limitations History of Present Illness HPI narrative: patient here for suture removal. She had a laceration 11 days ago on the tip of her left ring finger. She was here 3 days ago but they said it was not quite ready for the sutures to be removed. She has no other complaints. Onset (ago): day(s) () Extremity Location: Left: hand (ring finger) Place: home Patient tetanus UTD: Yes Context: accidental Associated symptoms: none Related Data Home Medications Medication Instructions Recorded Confirmed aspirin 81 mg tablet,delayed 81 mg PO DAILY 10/02/19 12/30/21 release cholecalciferol (vitamin D3) 50 50 mcg PO DAILY 05/20/21 12/30/21 mcg (2,000 unit) capsule Allergies Allergy/AdvReac Type Severity Reaction Status Date / Time erythromycin base Allergy Mild rash Verified 01/02/22 11:07 Macrolide Antibiotics Allergy Mild Rash Verified 01/02/22 11:07 Sulfa (Sulfonamide Allergy Mild Rash Verified 01/02/22 11:07 Antibiotics) chlorhexidine Allergy Unknown rash Verified 01/02/22 11:07 cyclobenzaprine Allergy Unknown rash Verified 01/02/22 11:07 Penicillins Allergy Unknown rash Verified 01/02/22 11:07 KETOLIDES Allergy Mild Rash Uncoded 12/30/21 16:11 Review of Systems Review of Systems: All systems reviewed & are unremarkable except as noted in HPI and below PMFSH Past Medical History Medical History Coronary arteriosclerosis Dyslipidemia Essential hypertension Genital herpes Hypothyroidism (acquired) Kidney stones Type 2 diabetes mellitus with other circulatory complications Surgical History Surgical History History of section x 2 History of endometrial ablation History of tubal ligation Hx of breast reduction, elective Hx of CABG Family History Family History Father Hypertension Family history of bronchitis Patient's father is Family history of cardiovascular disease Acute myocardial infarction Grandparent Diabetes mellitus Mother Family history of thyroid disease Family history of hypothyroidism Other Family history of Alzheimer's disease Social History Social History Years smoked: 25 Smoking status: Never smoker Second hand tobacco smoke exposure: No Smoking end date: 02/14/12 Additional smoking assessment comments: QUIT OVER 7 YEARS AGO Alcohol intake: never Gender identity (if verbalized by the patient): Female Spiritual care concerns: No Exam Const: General: healthy appearing and no acute distress Nutritional Appearance: well nourished Orientation/consciousness: patient oriented x3 Limitations: no limitations HENMT: Head: normal to inspection Ears: external ears normal Eyes: Conjunctivae: conjunctivae normal Pupils: Equal, round and reactive pupils present EOM: EOMs intact bilaterally Neck: Neck: normal visual inspection Resp: Effort & Inspection: normal respiratory effort Auscultation: clear to auscultation bilaterally Cardio: Rate: regular rate Rhythm: regular rhythm GI: GI Palp: Yes Soft to palpation and No Tenderness to palpation present (GI) Auscultation: normal bowel sounds Back/Spine/Pelvis: Cervical Spine: cervical ROM normal Thoracic/Lumbar Spine: thoraco-lumbar ROM normal Skin: General skin exam: normal color Rashes: no rashes Wounds: wounds noted laceration left volar 4th finger size (1 cm) and sutures in place and removed; without any surrounding erythema Neuro: General: patient oriented x3, moves all extremities, no focal motor deficits and CN's II-XI intact bilat
[2022-01-02 10:50] VITALS: BP 162/83; PULSE 79; RESP 18; TEMP 36.3; O2SAT 99
== END 2022-01-02 11:28 | disposition home or self-care (01) ==
PROVIDERS: Emergency Provider Emergency Medicine
DX: Z48.02 Encounter for removal of sutures (principal)
CPT/HCPCS: 99281

== ENCOUNTER 2022-01-07 09:29 | Outpatient (CLI) | payer OTHER, SELFPAY ==
--- NOTE | 2022-01-07 11:00 | NEURO_ITS ---
Impression: # History of bilateral hand stiffness. # Right Carpal Tunnel Syndrome. # Left evolving, mild Carpal Tunnel Syndrome. # Normal needle/EMG exam. # Clinical correlation recommended. Motor Nerve Conduction Upper Extremities Median Nerve Conduction Velocity (m/sec) Terminal Latency (msec) Response Voltage(mV) Elbow-Wrist Wrist Elbow Wrist Right 53 5.2 3 3 Left 54 3.9 4 4 Ulnar Nerve Conduction Velocity (m/sec) Terminal Latency (msec) Response Voltage(mV) Above Elbow Below Elbow Wrist Above Elbow Below Elbow Wrist Right 56 59 2.5 5 5 6 Left 56 58 2.2 6 6 7 F-Wave Latency Median (ms) Ulnar (ms) Right 25.9 25.1 Left 25.9 25.8 Sensory Nerve Conduction Upper Extremities Median Nerve Stimulation Terminal Latency (msec) Wrist/Digit Response Voltage (uV) Wrist Right 4.0/4.3 33/11 Left 3.5/4.0 42/33 Ulnar Nerve Stimulation Terminal Latency (msec) Wrist/Digit Response Voltage (uV) Wrist Right 2.7 22 Left 2.7 47 Radial Nerve Terminal Latency (msec) Response Voltage(mV) Right 1.8 33 Left 1.8 20 Left Right Muscles Examined Fibrillation Fasciculation Scarcity Voltage Duration Left Right Left Right Left Right Left Right Left Right Deltoid Biceps X X Brachioradialis Triceps X X Pronator Teres X X Ext Indicis X X Ext Digitorum X X Abd Poll Brev X X 1st Dorsal Interosseus Paraspinals MTDD
== END 2022-01-07 09:30 | disposition home or self-care (01) ==
PROVIDERS: PCP Internal Medicine; Visit Provider Clinical Nurse Specialist
DX: R20.0 Anesthesia of skin (principal); G56.03 Carpal tunnel syndrome, bilateral upper limbs
CPT/HCPCS: 95886; 95911

== ENCOUNTER 2022-05-04 12:01 | Emergency (ER) | payer OTHER, SELFPAY ==
[2022-05-04 12:01] VITALS: BP 190/94; PULSE 83; RESP 18; TEMP 37; O2SAT 98
--- NOTE | 2022-05-04 12:02 | ED.DENTAL ---
HPI - Dental/Oral General Chief complaint: Dental/Oral Stated complaint: Rt tooth pain Time Seen by Provider: 05/04/22 12:01 Source: patient and RN notes reviewed Mode of arrival: ambulatory Limitations: no limitations History of Present Illness Complaint: tooth pain Location: Tooth # (30) Onset (ago): day(s) (1) Duration: intermittent Severity: moderate Relieving factors: nothing Exacerbating factors: chewing and drinking fluids Context: other ( broken tooth) Treatment prior to arrival: other ( Tylenol) Related Data Home Medications Medication Instructions Recorded Confirmed aspirin 81 mg tablet,delayed 81 mg PO DAILY 10/02/19 01/26/22 release cholecalciferol (vitamin D3) 50 50 mcg PO DAILY 05/20/21 01/26/22 mcg (2,000 unit) capsule ascorbate calcium (vitamin C) 500 1,200 mg PO DAILY 01/26/22 01/26/22 mg tablet Allergies Allergy/AdvReac Type Severity Reaction Status Date / Time erythromycin base Allergy Mild rash Verified 04/07/22 13:51 Macrolide Antibiotics Allergy Mild Rash Verified 04/07/22 13:51 Sulfa (Sulfonamide Allergy Mild Rash Verified 04/07/22 13:51 Antibiotics) chlorhexidine Allergy Unknown rash Verified 04/07/22 13:51 cyclobenzaprine Allergy Unknown rash Verified 04/07/22 13:51 Penicillins Allergy Unknown rash Verified 04/07/22 13:51 KETOLIDES Allergy Mild Rash Uncoded 04/07/22 13:51 Review of Systems Review of Systems: All systems reviewed & are unremarkable except as noted in HPI and below Constitutional: Constitutional: Denies chills and Denies fever(s) PMFSH Past Medical History Medical History Coronary arteriosclerosis Dyslipidemia Essential hypertension Genital herpes Hypothyroidism (acquired) Kidney stones Type 2 diabetes mellitus with other circulatory complications Surgical History Surgical History History of section x 2 History of endometrial ablation History of tubal ligation Hx of breast reduction, elective Hx of CABG Family History Family History Father Hypertension Family history of bronchitis Patient's father is Family history of cardiovascular disease Acute myocardial infarction Grandparent Diabetes mellitus Mother Family history of thyroid disease Family history of hypothyroidism Other Family history of Alzheimer's disease Social History Social History Years smoked: 25 Smoking status: Former smoker Second hand tobacco smoke exposure: No Smoking end date: 02/14/12 Additional smoking assessment comments: QUIT OVER 7 YEARS AGO Alcohol intake: never Lack of Transportation: No Lack of Food: Never True Current Housing: I Have Housing Concerned About Future Housing: No Difficulty Paying Gas/Electric Bills: No Difficulty Paying for Meds: No Currently Unemployed: No Education: High School Diploma/GED Difficulty w/ Childcare or Family Care: No Gender identity (if verbalized by the patient): Female Spiritual care concerns: No Exam Const: General: healthy appearing, no acute distress and alert Nutritional Appearance: well nourished Orientation/consciousness: patient oriented x3 Limitations: no limitations HENMT: Head: normal to inspection Ears: external ears normal Face/Nose/Sinus: Normal external nose present Face and sinus: edema on the left mandible and Facial tenderness on exam of face and sinuses on the left mandible Mouth: Yes moist mucous membranes Teeth image: 1. fractured in them all on the tongue side with exposure nerve root. Some surrounding edema and erythema along the gum line. Eyes: Conjunctivae: conjunctivae normal Pupils: Equal, round and reactive pupils present EOM: EOMs intact bilaterally Neck: Neck: normal visual inspection and no
== END 2022-05-04 12:30 | disposition home or self-care (01) ==
PROVIDERS: Emergency Provider Emergency Medicine; PCP Internal Medicine
DX: K04.7 Periapical abscess without sinus (principal); E78.5 Hyperlipidemia, unspecified; I10 Essential (primary) hypertension; E03.9 Hypothyroidism, unspecified; E11.9 Type 2 diabetes mellitus without complications; Z87.891 Personal history of nicotine dependence
CPT/HCPCS: 99283

== ENCOUNTER 2022-06-07 14:32 | Outpatient (CLI) | payer OTHER, SELFPAY ==
--- NOTE | ~2022-06-07 | MR_ITS ---
EXAMINATION: MR brain/brain stem wo/w con DATE: 06/07/2022 15:25 INDICATION: Memory loss. TECHNIQUE: Magnetic resonance imaging (MRI) of the brain and brainstem was performed without and with 13 mL MultiHance intravenous contrast. COMPARISON: None. FINDINGS: There are scattered areas of nonspecific increased T2-weighted signal intensity in the cere bral white matter, which is within normal limits for the patient's age. There is no intracranial hemo rrhage, acute infarction, or abnormal intracranial mass lesion. The ventricles are normal in size. Th e orbits are normal. The paranasal sinuses are clear. The mastoid air cells are normal. IMPRESSION: 1. Normal aging brain. Reviewed, dictated and finalized at location A. IMPRESSION: 1. Normal aging brain.
== END 2022-06-07 14:33 | disposition home or self-care (01) ==
PROVIDERS: PCP Internal Medicine; Visit Provider Clinical Nurse Specialist
DX: R41.3 Other amnesia (principal)
CPT/HCPCS: 70553; A9577

== ENCOUNTER 2022-07-29 07:53 | Outpatient (CLI) | payer OTHER, SELFPAY | END 2022-07-29 07:54 | disposition home or self-care (01) | LOC: ANHAUDASC 07:55 | PROVIDERS: PCP Internal Medicine; Visit Provider Clinical Nurse Specialist | DX: H90.3 Sensorineural hearing loss, bilateral (principal) | CPT/HCPCS: 92557; 92567 ==

== ENCOUNTER 2023-04-03 09:44 | Outpatient (CLI) | payer OTHER, SELFPAY ==
--- NOTE | ~2023-04-03 | MM_ITS ---
EXAMINATION: MM screening angela BI w latasha HISTORY: Screening TECHNIQUE: Craniocaudal and mediolateral oblique 3-D tomosynthesis images were obtained and synthetic 2-D images were generated. CAD analysis was submitted and interpreted. COMPARISON: No prior mammogram is available for comparison at this institution. BREAST PARENCHYMAL COMPOSITION: Not dense: There are scattered areas of fibroglandular density. FINDINGS: There is a focal asymmetry in the upper outer quadrant of the right breast, middle third. T here is focal architectural distortion in the mid outer aspect of the left breast. IMPRESSION: 1. Focal right breast asymmetry and focal architectural distortion in the left breast. 2. Additional mammographic views and possible breast ultrasound are recommended. BI-RADS Category 0: Incomplete: Needs additional imaging evaluation. Reviewed, dictated and finalized at location A. ITY PROSPECTING OPERATOR HELPER IMPRESSION: 1. Focal right breast asymmetry and focal architectural distortion in the left breast. 2. Additional mammographic views and possible breast ultrasound are recommended . BI-RADS Category 0: Incomplete: Needs additional imaging evaluation.
== END 2023-04-03 09:45 | disposition home or self-care (01) ==
LOC: ANHIMG 09:47
PROVIDERS: PCP Internal Medicine; Visit Provider Obstetrics & Gynecology
DX: Z12.31 Encounter for screening mammogram for malignant neoplasm of breast (principal); R92.8 Other abnormal and inconclusive findings on diagnostic imaging of breast
CPT/HCPCS: 77063; 77067

== ENCOUNTER 2023-04-26 12:08 | Outpatient (CLI) | payer OTHER, SELFPAY ==
--- NOTE | ~2023-04-26 | MM_ITS ---
EXAMINATION: MM diagnostic angela BI w latasha HISTORY: Focal right breast asymmetry and focal architectural distortion in left breast reported on F ebruary 2023 screening mammogram TECHNIQUE: Additional 3-D tomosynthesis images of both breasts were performed and synthetic 2-D image s were generated. CAD analysis was submitted and interpreted. COMPARISON: Serial mammograms dating back to 09/19/2020 FINDINGS: No suspicious mass, architectural distortion, malignant calcification, skin thickening or r etraction or significant new or developing density is evident since 09/19/2020. IMPRESSION: 1. No evidence of malignancy 2. Routine annual mammographic screening is recommended BI-RADS Category 1: Negative Reviewed, dictated and finalized at location A.
== END 2023-04-26 12:09 | disposition home or self-care (01) ==
LOC: ANHIMG 12:10
PROVIDERS: PCP Internal Medicine; Visit Provider Obstetrics & Gynecology
DX: R92.8 Other abnormal and inconclusive findings on diagnostic imaging of breast (principal)
CPT/HCPCS: 77062; 77066; G0279

== ENCOUNTER 2024-03-05 14:53 | Outpatient (CLI) | payer OTHER, SELFPAY ==
--- NOTE | ~2024-03-05 | US_ITS ---
EXAMINATION: US carotid duplex BI DATE: 03/05/2024 15:49 INDICATION: Occlusion and stenosis of unspecified carotid artery. TECHNIQUE: Grayscale, color Doppler, and pulsed Doppler images of the cervical carotid arteries were obtained. The degree of vessel stenosis is placed in one of the following categories: normal, <50%, 5 0-69%, >=70% but less than near-occlusion, near-occlusion, or total occlusion. Note that percent sten osis relative to normal distal artery lumen diameter is indirectly measured from velocity measurement s as described by Michael, et al. Radiology 2003; 229:340-346. COMPARISON: Ultrasound 12/18/2020 FINDINGS: RIGHT: The right common carotid artery (CCA) peak systolic velocity (PSV) is 86 cm/s. The right internal car otid artery (ICA) PSV is 192 cm/s. The right ICA end-diastolic velocity (EDV) is 16 cm/s. The right I CA/CCA PSV ratio is 2.2. Grayscale and color Doppler images yield an estimate of >=50% diameter reduc tion from plaque in the ICA. There is antegrade flow in the right vertebral artery. LEFT: The left CCA PSV is 90 cm/s. The left ICA PSV is 117 cm/s. The left ICA EDV is 35 cm/s. The left ICA/ CCA PSV ratio is 1.3. Grayscale and color Doppler images yield an estimate of <50% diameter reduction from plaque in the ICA. There is antegrade flow in the left vertebral artery. IMPRESSION: 1. 50-69% stenosis in the right internal carotid artery. 2. <50% stenosis in the left internal carotid artery. Reviewed, dictated and finalized at location B. COORDINATOR
--- OUTSIDE RECORDS SUMMARY | 2024-03-07 19:21 | XMS_ITS | Clinical Summary ---
Author Organization [facility] Address [facility] [place] [address] Care Team Providers Care Junior Manufacturing Engineer Name Role Phone Alban Stanford DO Primary Care Provider [phone] Allergies Active Allergy Reactions Criticality Noted Date Comments Cyclobenzaprine Rash Medium Reaction: RASH, Erythromycin Rash Medium Reaction: RASH, Penicillins Hives Medium Reaction: HIVES, Sulfa (Sulfonamide Antibiotics) Hives High Reaction: HIVES, Medications aspirin (ASPIRIN LOW DOSE) 81 mg tablet take 1 Tablet (81MG) by oral route every day 0 06/04/2012 Active glipiZIDE (GLUCOTROL) 5 mg tablet take 1 tablet by oral route every day before meals 0 0 05/12/2014 Active amLODIPine (NORVASC) 10 mg tablet Take 10 mg by mouth daily Active losartan (COZAAR) 100 mg tablet Take 100 mg by mouth daily Active pravastatin (PRAVACHOL) 10 mg tablet Take 10 mg by mouth daily 05/03/2020 Active acyclovir (ZOVIRAX) 400 mg tablet Take 400 mg by mouth daily 05/05/2020 Active carvediloL (COREG) 12.5 mg tablet Take 12.5 mg by mouth 2 (two) times a day 04/20/2020 Active levothyroxine (SYNTHROID) 88 mcg tablet Take 88 mcg by mouth daily 03/03/2020 Active metFORMIN (GLUCOPHAGE) 1,000 mg tablet Take 1,000 mg by mouth 2 (two) times a day 03/23/2018 Active Active Problems Problem Noted Date Diagnosed Date Kidney stone 03/06/2020 Overview (03/06/2020): Added automatically from request for surgery [id number] Surgical History Surgery Date Site/Laterality Comments SECTION REDUCTION MAMMAPLASTY OTHER SURGICAL HISTORY 02/14/2012 - 02/12/2013 double bypass CORONARY ARTERY BYPASS GRAFT Medical History Medical History Date Comments Hypertension Hypertension Kidney stone Thyroid disease Diabetes mellitus (HCC) Coronary artery disease cagb GERD (gastroesophageal reflux disease) Type 2 diabetes mellitus (HCC) Hypothyroidism Family History Medical History Relation Name Comments Heart attack Father 2 Myocardial Infa rction; Cause of : Myocardial Infarction Relation Name Status Comments Father 1 (Age 36) Father 2 Social History Tobacco Use Types Packs/Day Years Used Date Smoking Tobacco: Former Smokeless Tobacco: Never Alcohol Use Standard Drinks/Week Comments Yes 0 (1 standard drink = 0.6 oz pur e alcohol) AUDIT-C Answer Date Recorded Q1: How often do you have a drink containing alc ohol? Never 05/14/2020 Average Number of Drinks Not on file 021 Q3: How often do you have si x or more drinks on one occasion? 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 Gender Identity Not on file Sexual Orientation Not on file Obstetrics History Last Filed Vital Signs Vital Sign Reading Time Taken Comments Blood Pressure 145/77 05/14/2020 9:43 AM CDT Pulse 63 05/14/2020 9:43 AM CDT Temperature 36.1 ??C (97 ??F) 05/14/2020 9:19 AM CDT Respiratory Rate 16 05/14/2020 9:43 AM CDT Oxygen Saturation 98% 05/14/2020 9:43 AM CDT Inhaled Oxygen Concentration - - Weight 68 kg (149 lb 14.6 oz) 05/14/2020 6:29 AM CDT Height 160 cm (5' 3 ) 05/14/2020 6:29 AM CDT Body Mass Index 26.56 05/14/2020 6:29 AM CDT Plan of Treatment Not on file Insurance [facility] [place] [address] [place] [address] Care Teams Junior Manufacturing Engineer Relationship Specialty Start Date End Date Alban Stanford DO PCP - General 05/13/16
--- OUTSIDE RECORDS SUMMARY | 2024-03-07 19:21 | XMS_ITS | Referral Summary ---
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 Care Teams Distribution Associate Relationship Specialty Start Date End Date Alban Stanford DO PCP - General 05/13/16
== END 2024-03-05 14:54 | disposition home or self-care (01) ==
PROVIDERS: PCP Internal Medicine; Visit Provider Internal Medicine Cardiovascular Disease
DX: I65.23 Occlusion and stenosis of bilateral carotid arteries (principal)
CPT/HCPCS: 93880

== ENCOUNTER 2024-05-08 14:00 | Outpatient (CLI) | payer OTHER, SELFPAY ==
--- NOTE | ~2024-05-08 | XR_ITS ---
XR elbow RT min 3V 05/08/2024 14:15 Indication: Right elbow pain for 3 weeks Procedure: 4 views right elbow Comparison: No prior studies for comparison. Findings: No fracture, subluxation or dislocation. There are surgical clips overlying the ventral asp ect of the proximal forearm. No significant joint effusion. Small degenerative enthesophyte at the ol ecranon. Impression: 1: No acute bone or joint abnormality. Reviewed, dictated and finalized at location A. Impression: 1: No acute bone or joint abnormality.
--- OUTSIDE RECORDS SUMMARY | 2024-05-08 15:13 | XMS_ITS | Clinical Summary ---
Author Organization [facility] Address [address], [address] [address] Phone Care Team Providers Care Fishing Vessel Deckhand Name Role Phone GalasusanAlban gardner Primary Care Provider Allergies Active Allergy Reactions Criticality Noted Date Comments Cyclobenzaprine Rash Medium 05/02/2018 Reaction: RASH, Erythromycin Rash Medium 05/02/2018 Reaction: RASH, Macrolides And Ketolides Rash 05/02/2018 Penicillins Hives Medium 05/02/2018 Reaction: HIVES, Sulfa Antibiotics Hives High 05/02/2018 Reaction: HIVES, Medications Aspirin 81 MG Tablet 81 mg. 06/04/2012 Active acyclovir (ZOVIRAX) 400 MG Tablet TAKE 1 TABLET BY MOUTH TWICE A DAY 0 04/11/2018 Active amLODIPine (NORVASC) 10 MG Tablet Take 10 mg by mouth daily. 0 04/11/2018 Active atorvastatin (LIPITOR) 10 MG Tablet Take 10 mg by mouth daily. 3 04/04/2018 Active atorvastatin (LIPITOR) 40 MG Tablet 40 mg. 09/17/2012 Active carvedilol (COREG) 6.25 MG Tablet 6.25 mg. 09/17/2012 Active carvedilol (COREG) 12.5 MG Tablet 04/30/2018 Active Doxycycline Monohydrate 100 MG Capsule TAKE 1 CAPSULE BY MOUTH TWICE A DAY 0 03/08/2018 Active glipiZIDE (GLUCOTROL) 5 MG Tablet 5 mg. 05/12/2014 Active levothyroxine (SYNTHROID) 100 MCG Tablet Take 100 mcg by mouth daily. 0 04/11/2018 Active lisinopril (PRINIVIL, ZESTRIL) 20 MG Tablet 20 mg. 05/14/2015 Active losartan (COZAAR) 100 MG Tablet Take 100 mg by mouth daily. 0 04/04/2018 Active metFORMIN (GLUCOPHAGE) 1000 MG Tablet TAKE 1 TABLET BY MOUTH TWICE A DAY 1 03/23/2018 Active metFORMIN (GLUCOPHAGE) 500 MG Tablet 500 mg. 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 Gender Identity Not on file Sexual Orientation Not on file Last Filed Vital Signs Vital Sign Reading Time Taken Comments Blood Pressure 168/80 05/02/2018 9:33 AM CDT Pulse 74 05/02/2018 9:33 AM CDT Temperature 36.9 C (98.4 F) 05/02/2018 9:33 AM CDT Respiratory Rate 16 05/02/2018 9:33 AM CDT Oxygen Saturation 98% 05/02/2018 9:33 AM CDT Inhaled Oxygen Concentration - - Weight 71.2 kg (157 lb) 05/02/2018 9:33 AM CDT Height 160 cm (5' 3 ) 05/02/2018 9:33 AM CDT Body Mass Index 27.81 05/02/2018 9:33 AM CDT Plan of Treatment Health Maintenance Due Date Last Done Comments Hepatitis C Virus (HCV) Screening 1962 TdaP Immunization 1962 Colonoscopy 2007 Colorectal Cancer Screening 2007 Cologuard 2012 Immunochemical Fecal Occult Blood 2012 Pneumococcal Immunization (5 0+ years) (1 of 1 - PCV) 2012 Zoster Immunization (1 of 2) 2012 Influenza Immunization (#1) 2023 SARS-COV-2 Immunization ( season) 2023 02/19/2021, 08/14/2020, 07/24/2020 Respiratory Syncytial Virus (RSV) Immunization (Adult) (1 - 1-dose 75+ series) 2037 Hepatitis B Immunization Aged Out No longer eligible based on patient's age to complete this topic Meningococcal Immunization (ACWY) Aged Out No longer eligible b ased on patient's age to complete this topic Rotavirus Immunization Aged Out No lo nger eligible based on patient's age to complete this topic Insurance MEDICAID [facility] Care Teams Fishing Vessel Deckhand Relationship Specialty Start Date End Date Alban Stanford DO [facility] [address] [facility] [place] [address] PCP - General Internal Medicine 03/09/18
--- OUTSIDE RECORDS SUMMARY | 2024-05-08 15:13 | XMS_ITS | Clinical Summary ---
Author Organization [facility] Address [facility] [place] [address] Care Team Providers Care Proofsheet Corrector Name Role Phone Alban Stanford DO Primary Care Provider [phone]- [phone] Allergies Active Allergy Reactions Criticality Noted Date Comments Cyclobenzaprine Hives,Rash Medium 02/13/1979 Reaction: hives, super itchy. No ED care. She doesn't recall if she took any home treatment. Erythromycin Hives,Rash Medium 02/13/1989 Reaction: RASH, hives Tolerates azithromycin for sinus infections Penicillins Hives Medium 02/13/1969 Reaction: HIVES in her teens, lasted for about 1 day. She was taking a course for a sinus infection. She called her doctor who asked her to stop the PCN and the rash resolved. No treatment needed. Polymycin Swelling,Rash Medium 02/13/2023 EYE SWELLING , itching, redness of her conjunctiva and the surrounding skin. Sulfa (Sulfonamide Antibiotics) Hives High 02/13/1979 Reaction: hives, erythema within a day of starting antibiotics course. no swelling, no vomiting, no dyspnea, sought care in ED. Occurred in her 20s. Treated with a pill. Then worsened at home hours later. She returned to the ED and received a steroid shot and the itching improved. Medications aspirin (ASPIRIN LOW DOSE) 81 mg tablet take 1 Tablet (81MG) by oral route every day 0 3 Active glipiZIDE (GLUCOTROL) 5 mg tablet take 1 tablet by oral route every day before meals 0 0 5 Active amLODIPine (NORVASC) 10 mg tablet Take 1 tablet (10 mg total) by mouth daily Active losartan (COZAAR) 100 mg tablet Take 1 tablet (100 mg total) by mouth daily Active pravastatin (PRAVACHOL) 10 mg tablet Take 1 tablet (10 mg total) by mouth daily 1 Active acyclovir (ZOVIRAX) 400 mg tablet Take 1 tablet (400 mg total) by mouth daily 1 Active carvediloL (COREG) 12.5 mg tablet Take 1 tablet (12.5 mg total) by mouth 2 (two) times a day 1 Active levothyroxine (SYNTHROID) 88 mcg tablet Take 1 tablet (88 mcg total) by mouth daily 1 Active metFORMIN (GLUCOPHAGE) 1,000 mg tablet Take 1 tablet (1,000 mg total) by mouth 2 (two) times a day 9 Active cyanocobalamin (Vitamin B-12) 1,000 mcg tabletIndications: Prevention of Vitamin B12 Deficiency Take 1 tablet (1,000 mcg total) by mouth daily Active calcium carbonate-vitamin D3 1,500 mg (600 mg elemental)-200 unit capsule Take 1,200 mcg by mouth Active cholecalciferol (VITAMIN D-3) 2000 unit tablet Active loratadine (CLARITIN) 10 mg tablet Take 1 tablet (10 mg total) by mouth daily Active fluticasone propionate (FLONASE) 50 mcg/actuation nasal spray Administer 1 spray into each nostril 2 (two) times a day Active olopatadine (PAZEO) 0.7 % ophthalmic solutionIndication s:Allergic Conjunctivitis 1 drop daily Ac tive azelastine (ASTELIN) 137 mcg (0.1 %) nasal sprayIndications:P erennial Allergic Rhinitis Administer 2 sprays into each nostril 2 (two) times a day Use in each nostril as directed 30 mL 11 5 Active Active Problems Problem Noted Date Diagnosed Date Kidney stone 03/06/2020 Overview (03/06/2020): Added automatically from request for surgery [id number] Encounters Date Type Department Care Team Description 05/01/2024 9:00 AM CDT Office Visit [facility] [address] [facility] [address] [place] [address] Linda Holder MD Seasonal allergic rhinitis, unspecified trigger (Primary Dx); Allergy, unspecified, initial encounter; Adverse effect of drug, initial encounter 04/30/2024 Telephone [facility] [address] [facility] [address] [place] [address] Nereida Wilkins from Last 3 Months Surgical History Surgery Date Site/Laterality Comments SECTION [...] Date Smoking Tobacco: Former Smokeless Tobacco: Never Tobacco Cessation:Counseling Given: Not Answered Alcohol Use Standard Drinks/Week Comments Yes 0 [...] on file 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 Gender Identity Not on file Sexual Orientation Not on file Obstetrics History Last Filed Vital Signs Vital Sign Reading Time Taken Comments Blood Pressure 165/85 05/01/2024 8:42 AM CDT Pulse 80 05/01/2024 8:42 AM CDT Temperature 36.6 C (97.9 F) 05/01/2024 8:42 AM CDT Respiratory Rate 18 05/01/2024 8:42 AM CDT Oxygen Saturation 99% 05/01/2024 8:42 AM CDT Inhaled Oxygen Concentration - - Weight 70.8 kg (156 lb) 05/01/2024 8:42 AM CDT Height 160 cm (5' 3 ) 05/01/2024 8:42 AM CDT Body Mass Index 27.63 05/01/2024 8:42 AM CDT Plan of Treatment Health Maintenance Due Date Last Done Comments Breast Cancer Screening-Mammogram 1962 Cervical Cancer Screening 1962 Colon Cancer Screening-Colonoscopy 1962 Depression Screening 1962 Hepatitis C Screening 1962 DTaP/Tdap/Td Vaccine (1 - Tdap) 1973 Hepatitis B Screening 1980 Regular Well Visit/Exam 18-64 1980 Zoster Vaccine (2 of 2) 04/06/2020 02/10/2020 Influenza Vaccine (#1) 2023 Pneumococcal vaccine <65 Aged Out No longer eligible based on patient's age to complete this topic Procedures Procedure Name Priority Date/Time Associated Diagnosis Comments ALLERGEN PIGWEED ROUGH (WEED) IGE Routine 05/02/2024 2:52 PM CDT Allergy, unspecified, initial encounter Seasonal allergic rhinitis, unspecified trigger INTERPRETATION Routine 05/02/2024 2:52 PM CDT from Last 3 Months Results * INTERPRETATION (05/02/2024 2:52 PM CDT) Interpretation [facility] Comment: Specific Level of Allergen IGE Class kU/L Specific IGE Antibody ----- --------- 0 <0.10 Absent/Undetectable 0/1 0.10-0.34 Very Low Level 1 0.35-0.69 Low Level 2 0.70-3.49 Moderate Level 3 3.50-17.4 High Level 4 17.5-49.9 Very High Level 5 50-100 Very High Level 6 >100 Very High Level The clinical relevance of allergen results of 0.10-0.34 kU/L are undetermined and intended for specialist use. Allergens denoted with a include results using one or more analyte specific reagents. In those cases, the test was developed and its analytical performance characteristics have been determined by [employer]. It has not been cleared or approved by the U.S. Food and Drug Administration. This assay has been validated pursuant to the CLIA regulations and is used for clinical purposes. 05/02/2024 2:52 PM CDT 05/02/2024 2:52 PM CDT Linda Holder MD LAB MICROBIOLOGY - GENER AL ORDERABLES Final Result Performing Organization Address City/[facility]/ZIP Co de Phone Number [facility] [address] [place] [address] * (ABNORMAL) Allergen Pigweed, rough (weed) IgE (05/02/2024 2:52 PM CDT) Pigweed rough IgE 0.12(H) kU/L [facility] Class 0/1 [facility] Blood 05/02/2024 2:52 PM CDT 05/02/2024 2:52 PM CDT Linda Holder MD LAB BLOOD ORDERABLES Fin al Result Performing Organization Address [facility] Co de Phone [facility] [address] [place] [address] from Last 3 Months Insurance [facility] Care Teams Proofsheet Corrector Relationship Specialty Start Date End Date Alban Stanford DO PCP - General 05/13/16
--- OUTSIDE RECORDS SUMMARY | 2024-05-08 15:14 | XMS_ITS | Referral Summary ---
Author Organization [facility] Address [facility] [place] [address] Care Team Providers Care Petrol Tanker Driver Name Role Phone Alban Stanford DO Primary Care Provider [phone] Encounters Date Type Department Care Team Description 05/01/2024 9:00 AM CDT Office Visit [facility] [address] [place] [address] [place] [phone] Linda Holder MD Seasonal allergic rhinitis, unspecified trigger (Primary Dx); Allergy, unspecified, initial encounter; Adverse effect of drug, initial encounter 04/30/2024 Telephone [facility] [address] [place] [phone] Nereida Wilkins from Last 3 Months Allergies Active Allergy Reactions Criticality Noted Date [...] (03/06/2020): Added automatically from request for surgery [id number] Social History Tobacco Use Types Packs/Day Years [...] on file 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 Gender Identity Not on file Sexual Orientation [...] 05/01/2024 8:42 AM CDT Plan of Treatment Not on file Procedures Procedure Name Priority Date/Time Associated Diagnosis Comments ALLERGEN PIGWEED ROUGH (WEED) IGE Routine 05/02/2024 2:52 PM CDT Allergy, unspecified, initial encounter Seasonal allergic rhinitis, unspecified trigger INTERPRETATION Routine 05/02/2024 2:52 PM CDT from Last 3 Months Results * INTERPRETATION (05/02/2024 2:52 PM CDT) Interpretation [facility] Comment: Specific Level of Allergen IGE Class [...] analytical performance characteristics have been determined by [employer]. It has not been cleared or approved by the U.S. Food and Drug Administration. This assay has been validated pursuant to the CLIA regulations and is used for clinical purposes. 05/02/2024 2:52 PM CDT 05/02/2024 2:52 PM CDT Linda Holder MD LAB MICROBIOLOGY - [facility] AL ORDERABLES Final Result [facility] [id number] [place] [address] * (ABNORMAL) Allergen Pigweed, rough (weed) IgE (05/02/2024 2:52 PM CDT) Pigweed rough IgE 0.12(H) kU/L [facility] Class 0/1 [facility] Blood 05/02/2024 2:52 PM CDT 05/02/2024 2:52 PM CDT Linda Holder MD LAB BLOOD ORDERABLES Fin al Result [facility] [address] [id number] from Last 3 Months Insurance [facility] [employer] [facility] Care Teams Petrol Tanker Driver Relationship Specialty Start Date End Date Alban Stanford DO PCP - General 05/13/16
== END 2024-05-08 14:01 | disposition home or self-care (01) ==
PROVIDERS: PCP Internal Medicine; Visit Provider Clinical Nurse Specialist
DX: M25.521 Pain in right elbow (principal)
CPT/HCPCS: 73080

== ENCOUNTER 2024-06-25 15:00 | Outpatient (RCR) | payer OTHER, SELFPAY ==
--- NOTE | 2024-05-30 16:08 | OTOPEVAL1 ---
Assessment and note entered by KAMRAN Jerome/Sendy, ELVIN OT Evaluation Information 05/30/24 Assessment Status Evaluation Diagnosis M25.521 Pain in right elbow Subjective Information Patient reports pain in her right elbow x4 months. She is left handed. She points to her lateral elbow. She reports no paresthesia. 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 Reported Pain Level Pain Score 4: Self Report Assessment OT Clinical Summary Patient referred to OT with (R) elbow pain. Signs and symptoms are consistent with lateral epicondylitis. Educated on use of heat/ice, self massage, stretching, and ROM. Continued skilled therapy indicated for progressive strengthening, modalities, manual therapy, and HEP progression. Plan of Care Interventions Therapeutic Exercise,Manual Therapy,Therapeutic Activities,Hot Pack/Cold Pack,Ultrasound,Paraffin OT Services Indicated Yes Treatment Frequency and 1-2x/week for 8 visits Duration These treatments will address the objective and functional deficits as defined above. The patient will be advanced safely and appropriately in order for the patient to progress towards his/her prior level of function. Additional exercises will be introduced and as well as a comprehensive home exercise program upon discharge, if needed, ?to ensure carryover of functional gains achieved in the clinic. This treatment plan has been reviewed and agreement upon by the patient.
--- NOTE | 2024-05-30 16:08 | OPREHPOC ---
Outpatient Therapy Plan of Care This is a Multidisciplinary Plan of Care that may contain components documented by all disciplines (PT, OT, and ST.) OT Problem 1 OT Problem #1 Knowledge Deficit OT Goal 1 Goal / Goal Update Pt to be independent with HEP. Target Visit 8 OT Problem 2 OT Problem #2 Pain OT Goal 1 Goal / Goal Update Patient to report 0/10 pain with ADLs. Target Visit 8 OT Problem 3 OT Problem #3 Impaired Strength OT Goal 1 Goal / Goal Update Patient to improve functional strength of the (R) UE as demonstrated by being able to progress to 2 lb. wrist strengthening in all planes x10 reps. Target Visit 8 OT Goal 2 Goal / Goal Update Patient to improve functional strength of the (R) UE as demonstrated by being able to progress to yellow putty for cytology technologist strengthening x5 minutes without pain. Target Visit 8
--- NOTE | 2024-06-25 16:01 | OTOPDC ---
Assessment and note entered by Amos Tiwari, OTR/L, CHT OT D/C Summary 06/25/24 Diagnosis M25.521 Pain in right elbow Subjective Information Patient reports progress since beginning therapy. She reports experiencing less severe pain and less instances of high levels of pain. 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 She reports she typically has 3/10 pain in her elbow and that it can get up to 6/10 at worst, but it doesn't take as long to come down from the 6/10 when it flairs up. This has improved from experiencing 10/10 pain regularly. Assessment OT Clinical Summary Patient referred to OT with (R) elbow pain. She has progressed well with therapy, noting reduced pain and improved functional use. She has been tolerating progressive resistive exercise. 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 At the start of care she could not tolerate light resistance against wrist extension and today she tolerated moderate pressure. (R) Hot Stamp Operator strength improved from 18 to 48 lbs. Reviewed HEP this date. Patient demonstrates excellent understanding of all materials. She has a paraffin bath, massager, and HEP. She understands the importance of keeping up with her home program. Patient reports being ready for discharge and plans to continue to work on her HEP independently . D/C OT with goals partially met. Signs and symptoms are consistent with lateral epicondylitis. Educated on use of heat/ice, self massage, stretching, and ROM. Continued skilled therapy indicated for progressive strengthening, modalities, manual therapy, and HEP progression. Plan of Care OT Services Indicated No
--- NOTE | 2024-06-25 16:02 | OPREHPOC ---
Outpatient Therapy Plan of Care This is a Multidisciplinary Plan of Care that may contain components documented by all disciplines (PT, OT, and ST.) OT Problem 1 OT Problem #1 Knowledge Deficit OT Goal 1 Goal / Goal Update Pt to be independent with HEP. ---OT 06/25/24--- Met Target Visit 8 Progress Met OT Problem 2 OT Problem #2 Pain OT Goal 1 Goal / Goal Update Patient to report 0/10 pain with ADLs. ---OT 06/25/24--- Progressed, but not met Target Visit 8 Progress Not Met OT Problem 3 OT Problem #3 Impaired Strength OT Goal 1 Goal / Goal Update Patient to improve functional strength of the (R) UE as demonstrated by being able to progress to 2 lb. wrist strengthening in all planes x10 reps. ---OT 06/25/24--- Met Target Visit 8 Progress Met OT Goal 2 Goal / Goal Update Patient to improve functional strength of the (R) UE as demonstrated by being able to progress to yellow putty for type cutter strengthening x5 minutes without pain. ---OT 06/25/24--- 1/10 with putty, not met Target Visit 8 Progress Not Met
--- NOTE | 2024-06-25 16:07 | OTOPDC ---
Assessment and note entered by Amos Tiwari, OTR/L, CHT OT D/C Summary 06/25/24 Diagnosis M25.521 Pain in right elbow Subjective Information Patient reports progress since beginning therapy. She reports experiencing less severe pain and less instances of high levels of pain. 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 She reports she typically has 3/10 pain in her elbow and that it can get up to 6/10 at worst, but it doesn't take as long to come down from the 6/10 when it flairs up. This has improved from experiencing 10/10 pain regularly. Assessment OT Clinical Summary Patient referred to OT with (R) elbow pain. She has progressed well with therapy, noting reduced pain and improved functional use. She has been tolerating progressive resistive exercise. MMT today shows improved functional strength in the (R ) UE and accounting specialist. At the start of care she could not tolerate light resistance against wrist extension and today she tolerated moderate pressure. (R) Metal Bending Machine Operator strength improved from 18 to 48 lbs. Reviewed HEP this date. Patient demonstrates excellent understanding of all materials. She has a paraffin bath, massager, and HEP. She understands the importance of keeping up with her home program. Patient reports being ready for discharge and plans to continue to work on her HEP independently . D/C OT with goals partially met. Plan of Care OT Services Indicated No
== END 2024-06-26 08:43 | disposition home or self-care (01) ==
LOC: ANHGOSHOT 15:00
PROVIDERS: PCP Internal Medicine; Visit Provider Clinical Nurse Specialist
DX: M25.521 Pain in right elbow (principal); M77.11 Lateral epicondylitis, right elbow
CPT/HCPCS: 97018; 97035; 97110; 97140; 97165

== ENCOUNTER 2024-06-29 08:11 | Outpatient (CLI) | payer OTHER, SELFPAY ==
--- NOTE | ~2024-06-29 | MM_ITS ---
EXAMINATION: MM screening angela BI w latasha HISTORY: Screening TECHNIQUE: Craniocaudal and mediolateral oblique 3-D tomosynthesis images were obtained and synthetic 2-D images were generated. CAD analysis was submitted and interpreted. COMPARISON: Comparison to multiple prior studies sequentially, with oldest reviewed study dated 12/15. BREAST PARENCHYMAL COMPOSITION: Not dense: There are scattered areas of fibroglandular density. FINDINGS: There is no evidence of suspicious mass, calcification, or architectural distortion to sugg est malignancy in either breast. There has been no suspicious interval change. IMPRESSION: 1. No mammographic evidence of malignancy. 2. Recommend routine screening mammography in one year. BI-RADS Category 1: Negative Reviewed, dictated and finalized at location []
--- OUTSIDE RECORDS SUMMARY | 2024-06-29 08:15 | XMS_ITS | Clinical Summary ---
Author Organization 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
--- OUTSIDE RECORDS SUMMARY | 2024-06-29 08:15 | XMS_ITS | Clinical Summary ---
Author Organization [facility] Address [address] [place] [address] Care Team Providers Care Wind Farm Support Specialist Name Role Phone Alban Stanford DO Primary Care Provider [phone]- [phone] Allergies Active Allergy Reactions Criticality Noted Date [...] as directed 30 mL 11 5 Active Jardiance 10 mg tablet Take 1 tablet (10 mg total) by mouth every morning 5 Active Active Problems Problem Noted Date Diagnosed Date Kidney stone 03/06/2020 Overview (03/06/2020): Added automatically from request for surgery [id number] Encounters Date Type Department Care Team Description 06/27/[address] [facility] [address] [facility] [address] [place] [address] Arin Clark RN 06/27/[address] [facility] [address] [facility] [address] [place] [phone] Arin Clark RN 06/17/[address] [facility] [address] [place] [address] [place] [phone] Linda Holder MD 06/14/2024 4:00 PM CDT Office Visit [facility] [address] [place] [phone] Linda Holder MD Adverse effect of drug, initial encounter (Primary Dx); Seasonal allergic rhinitis due to pollen 05/01/2024 9:00 AM CDT Office Visit [facility] [address] [place] [phone] Linda Holder MD Seasonal allergic rhinitis, unspecified trigger (Primary Dx); Allergy, unspecified, initial encounter; Adverse effect of drug, initial encounter 04/30/[address] 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 Gender Identity Not on file Sexual Orientation Not on file Obstetrics History Last Filed Vital Signs Vital Sign Reading Time Taken Comments Blood Pressure 149/79 06/14/2024 3:35 PM CDT Pulse 71 06/14/2024 3:35 PM CDT Temperature 36.8 C (98.2 F) 06/14/2024 3:35 PM CDT Respiratory Rate 18 06/14/2024 3:35 PM CDT Oxygen Saturation 100% 06/14/2024 3:35 PM CDT Inhaled Oxygen Concentration - - Weight 71.2 kg (157 lb) 06/14/2024 3:35 PM CDT Height 160 cm (5' 3 ) 06/14/2024 3:35 PM CDT Body Mass Index 27.81 06/14/2024 3:35 PM CDT Plan of Treatment Health Maintenance Due Date Last Done Comments Breast Cancer Screening-Mammogram 1960 Cervical Cancer Screening 1960 Colon Cancer Screening-Colonoscopy 1960 Depression Screening 1960 Hepatitis C Screening 1962 DTaP/Tdap/Td Vaccine (1 - Tdap) 1973 Hepatitis B Screening 1980 Regular Well Visit/Exam 18-64 1980 Zoster Vaccine (2 of 2) 04/06/2020 02/10/2020 Influenza Vaccine (Season Ended) 2024 Pneumococcal vaccine <65 Aged Out No longer eligible based on patient's age to complete this topic Procedures Procedure Name Priority Date/Time Associated Diagnosis Comments ALLERGEN COCKROACH WALLISIAN (INSECT) IGE Routine 06/17/2024 3:03 PM CDT MOUSE (E88) IGE Routine 06/17/2024 3:03 PM CDT ALLERGEN RAT EPITHELIA/SERUM/URINE (ANIMAL) IGE Routine 06/17/2024 3:03 PM CDT ALLERGEN OAK RED (TREE) IGE Routine 06/17/2024 3:03 PM CDT ALLERGEN SPECIFIC IGE MULBERRY RED TREE Routine 06/17/2024 3:03 PM CDT ALLERGEN DERMATOPHAGOIDES FARINAE (INSECT) IGE Routine 06/17/2024 3:03 PM CDT ALLERGEN DERMATOPHAGOIDES PTERONYSSINUS (INSECT) IGE Routine 06/17/2024 3:03 PM CDT ALLERGEN ASPERGILLUS FUMIGATUS (MOLD) IGE Routine 06/17/2024 3:03 PM CDT ALLERGEN CLADOSPORIUM HERBARUM (MOLD) IGE Routine 06/17/2024 3:03 PM CDT ALLERGEN SYCAMORE WALLISIAN (TREE) IGE Routine 06/17/2024 3:03 PM CDT ALLERGEN WALNUT (TREE) IGE Routine 06/17/2024 3:03 PM CDT ALLERGEN ELM (TREE) IGE Routine 06/18/19 25 3:03 PM CDT ALLERGEN BIRCH (TREE) IGE Routine 06/17/2024 3:03 PM CDT ALLERGEN MAPLE/BOX ELDER (TREE) IGE Routine 06/17/2024 3:03 PM CDT NETTLE (W20) IGE Routine 06/17/2024 3:03 PM CDT ALLERGEN PIGWEED ROUGH (WEED) IGE Routine 06/17/2024 3:03 PM CDT ALLERGEN BEE'S QUARTER/GOOSE FOOT (WEED) IGE Routine 06/17/2024 3:03 PM CDT ALLERGEN PLANTAIN TUVALUAN (WEED) IGE Routine 06/17/2024 3:03 PM CDT ALLERGEN RAGWEED SHORT/COMMON (WEED) IGE Routine 06/17/2024 3:03 PM CDT ALLERGEN JOSEPH GRASS (GRASS) IGE Routine 06/17/2024 3:03 PM CDT ALLERGEN MANUEL GRASS (GRASS) IGE Routine 06/17/2024 3:03 PM CDT ALLERGEN BERMUDA GRASS (GRASS) IGE Routine 06/17/2024 3:03 PM CDT ALLERGEN EPITHELIA/DANDER DOG (ANIMAL) IGE Routine 06/17/2024 3:03 PM CDT ALLERGEN EPITHELIA/DANDER CAT (ANIMAL) IGE Routine 06/17/2024 3:03 PM CDT INTERPRETATION Routine 06/17/2024 3:03 PM CDT ALLERGEN PIGWEED ROUGH (WEED) IGE Routine 05/02/2024 2:52 PM CDT Allergy, unspecified, initial encounter Seasonal allergic rhinitis, unspecified trigger INTERPRETATION Routine 05/02/2024 2:52 PM CDT from Last 3 Months Results * Mouse (E88) IgE (06/17/2024 3:03 PM CDT) Pathologist [facility] Mouse (E88) IgE <0.10 kU/L [facility], Class 0 [facility], Comment: INTERPRETATION SPECIFIC LEVEL OF ALLERGEN IGE CLASS kU/L SPECIFIC IGE ANTIBODY -------- --------- 0 <0.10 ABSENT/UNDETECTABLE 0/1 0.10-0.34 VERY LOW LEVEL 1 0.35-0.69 LOW LEVEL 2 0.70-3.49 MODERATE LEVEL 3 3.50-17.4 HIGH LEVEL 4 17.5-49.9 VERY HIGH LEVEL 5 50-100 VERY HIGH LEVEL 6 >100 VERY HIGH LEVEL The clinical relevance of allergen results of 0.10-0.34 kU/L are undetermined and intended for specialist use. 06/17/2024 3:03 PM CDT 06/17/2024 3:38 PM CDT Linda Holder MD LAB BLOOD ORDERABLES Fin al Result Performing Organization Address [facility]/ZIP Co de Phone Number [facility], [address] [place] [address] * Nettle (weed) IgE (06/17/2024 3:03 PM CDT) RAST, nettle <0.10 kU/L [facility] Class, Nettle IgE 0 [facility] 06/17/2024 3:03 PM CDT 06/17/2024 3:38 PM CDT Result [facility] Linda Holder MD LAB BLOOD ORDERABLES Fin al Result Performing Organization Address [facility] Co de Phone Number [facility] [address] [place] [address] * Allergen Rat epithelia/serum/urine (animal) IgE (06/17/2024 3:03 PM CDT) Epithelia/serum /urine rat IgE <0.10 kU/L [facility], Class epithelia/serum /urine rat IgE 0 [facility], 06/17/2024 3:03 PM CDT 06/17/2024 3:38 PM CDT Linda Holder MD LAB BLOOD ORDERABLES Fin al Result [facility], [address] [place] [address] * Allergen Bee's quarter/goose foot (weed) IgE (06/17/2024 3:03 PM CDT) Bee's quarter/goose foot <0.10 kU/L [facility] CLASS 0 [facility] 06/17/2024 3:03 PM CDT 06/17/2024 3:38 PM CDT Linda Holder MD LAB BLOOD ORDERABLES Fin al Result Performing Organization Address City/[facility]/ZIP Co de Phone Number [facility] [address] [place] [address] * Allergen Specific IgE Oak[place] Red Tree (06/17/2024 3:03 PM CDT) Allergen Specific IgE [place] Red Tree <0.10 <0.35 kU/L [facility] [place], White IGG4 Class 0 [facility] Comment: The test method is the [employer] ImmunoCAP allergen-specific IgE system. CLASS INTERPRETATION <0.10 kU/L= 0, Negative; 0.10 - 0.34 kU/L= 0/1, Equivocal/Borderline; 0.35 - 0.69 kU/L=1, Low Positive; 0.70 - 3.49 kU/L=2, Moderate Positive; 3.50 - 17.49 kU/L=3, High Positive; 17.50 - 49.99 kU/L= 4, Very High Positive; 50.00 - 99.99 kU/L= 5, Very High Positive; >99.99 kU/L=6, Very High Positive *This test was developed and its performance characteristics determined by [employer] [facility]. It has not been cleared or approved by the U.S. Food and Drug Administration. FLAG Interpretation: A = Abnormal, H = High, L = Low 06/17/2024 3:03 PM CDT 06/17/2024 3:38 PM CDT Linda Holder MD LAB BLOOD ORDERABLES Fin al Result [facility] [address] [place] [phone] * (ABNORMAL) Allergen Birch (tree) IgE (06/17/2024 3:03 PM CDT) Birch IgE 0.20(H) kU/L [facility] Class, Birch IgE 0/1 [facility] 06/17/2024 3:03 PM CDT 06/17/2024 3:38 PM CDT Linda Holder MD LAB BLOOD ORDERABLES Fin al Result Performing Organization Address City/[facility] Co de Phone Number [facility] [address] [place] [address] * Allergen Cockroach prydeinig (insect) IgE (06/17/2024 3:03 PM CDT) Cockroach prydeinig IgE <0.10 <0.10 kU/L [facility]N [facility] Class Cockroach prydeinig IgE 0 0 [facility]/N [employer] [place] Comment: INTERPRETATION SPECIFIC LEVEL OF ALLERGEN IgE CLASS kU/L SPECIFIC IgE ANTIBODY --------- --------- 0 <0.10 Absent/Undetectable 0/1 0.10-0.34 Very [...] analytical performance characteristics have been determined by [employer]. It has not been cleared or approved by the U.S. Food and Drug Administration. The FDA has determined that such clearance or approval is not necessary. This assay has been validated pursuant to the CLIA regulations and is used for clinical purposes. 06/17/2024 3:03 PM CDT 06/17/2024 3:38 PM CDT Linda Holder MD LAB BLOOD ORDERABLES Fin al Result Performing Organization Address [facility] Co de Phone Number [employer]/[facility] [address] [place] [address] * (ABNORMAL) Allergen Plantain djiboutian (weed) IgE (06/17/2024 3:03 PM CDT) Plantain djiboutian IgE 0.15(H) kU/L [facility] Class 0/1 [facility] 06/17/2024 3:03 PM CDT 06/17/2024 3:38 PM CDT Linda Holder MD LAB BLOOD ORDERABLES Fin al Result Performing Organization Address City/[facility] Co de Phone Number [facility] [address] [place] [address] * Allergen Aspergillus fumigatus (mold) IgE (06/17/2024 3:03 PM CDT) Aspergillus fumigatus IgE <0.10 kU/L [facility] Class 0 [facility] 06/17/2024 3:03 PM CDT 06/17/2024 3:38 PM CDT Linda Holder MD LAB BLOOD ORDERABLES Fin al Result Performing Organization Address City/[facility]/ZIP Co de Phone Number [facility] [address] [place] [address] * (ABNORMAL) Allergen Joseph grass (grass) IgE (06/17/2024 3:03 PM CDT) Joseph grass IgE 0.10(H) kU/L [facility] Class 0/1 [facility] 06/17/2024 3:03 PM CDT 06/17/2024 3:38 PM CDT Linda Holder MD LAB BLOOD ORDERABLES Fin al Result [employer] [address] [facility] [place] [address] * INTERPRETATION (06/17/2024 3:03 PM CDT) Interpretation [facility] Comment: Specific Level of Allergen IGE [...] analytical performance characteristics have been determined by [employer]. It has not been cleared or approved by the U.S. Food and Drug Administration. This assay has been validated pursuant to the CLIA regulations and is used for clinical purposes. 06/17/2024 3:03 PM CDT 06/17/2024 3:38 PM CDT Linda Holder MD LAB MICROBIOLOGY - GENER AL ORDERABLES Final Result Performing Organization Address [facility] de Phone Number [facility] [address] [place] [address] * Allergen Bermuda grass (grass) IgE (06/17/2024 3:03 PM CDT) Bermuda grass IgE <0.10 kU/L [facility] Class 0 [facility] 06/17/2024 3:03 PM CDT 06/17/2024 3:38 PM CDT Linda Holder MD LAB BLOOD ORDERABLES Fin al Result Performing Organization Address [facility] de Phone Number [facility] [address] [place] [address] * (ABNORMAL) Allergen Elm (tree) IgE (06/17/2024 3:03 PM CDT) Elm IgE 0.55(H) kU/L [facility] [facility] Class 1 [facility] 06/17/2024 3:03 PM CDT 06/17/2024 3:38 PM CDT Linda Holder MD LAB BLOOD ORDERABLES Fin al Result Performing Organization Address [facility] de Phone Number [facility] [address] [place] [address] * (ABNORMAL) Allergen Cladosporium herbarum (mold) IgE (06/17/2024 3:03 PM CDT) Cladosporium herbarum IgE 0.15(H) kU/L [facility] Class, Cladosporium herbarum IgE 0/1 [facility] 06/17/2024 3:03 PM CDT 06/17/2024 3:38 PM CDT Linda Holder MD LAB BLOOD ORDERABLES Fin al Result Performing Organization Address [facility] de Phone Number [facility] [address] [place] [address] * Allergen Dermatophagoides pteronyssinus (insect) IgE (06/17/2024 3:03 PM CDT) Drmatophyton pteronyssinus IgE <0.10 kU/L [facility] Class 0 [facility] 06/17/2024 3:03 PM CDT 06/17/2024 3:38 PM CDT Linda Holder MD LAB BLOOD ORDERABLES Fin al Result Performing Organization Address [facility] de Phone Number [facility] [address] [place] [address] * Allergen Dermatophagoides farniae (insect) IgE (06/17/2024 3:03 PM CDT) Dermatophyton farinae IgE <0.10 kU/L [facility] Class 0 [facility] 06/17/2024 3:03 PM CDT 06/17/2024 3:38 PM CDT Linda Holder MD LAB BLOOD ORDERABLES Fin al Result Performing Organization Address [facility] de Phone Number [facility] [address] [place] [address] * (ABNORMAL) Allergen Epithelia/dander dog (animal) IgE (06/17/2024 3:03 PM CDT) Epithelia/dand er dog IgE 5.48(H) kU/L [facility] Clas 3 [facility] 06/17/2024 3:03 PM CDT 06/17/2024 3:38 PM CDT us Linda Holder MD LAB BLOOD ORDERABLES Fin al Result [facility] [address] [place] [address] * (ABNORMAL) Allergen Epithelia/dander cat (animal) IgE (06/17/2024 3:03 PM CDT) Epithelia/dand er cat IgE 0.70(H) kU/L [facility] Class 2 [facility] [id number]|2024-06-29 08:15:00|2024-06-29 08:15:00|XMS_ITS|BKG DAEMON|External Medical Summaries|[id number]|" Referral Summary Created on: June 29, 2024 Lucy Cox : 1960 Sex: Female Author Organization [facility] Address [address] [place] [address] Care Team Providers Care Wind Farm Support Specialist Name Role Phone Alban Stanford DO Primary Care Provider [phone]- [phone] Encounters Date Type Department Care Team Description 06/27/[address] [facility] [address] [facility] [address] [place] [phone] Arin Clark RN 06/27/[address] [facility] [address] [facility] [address] [place] [address] Arin Clark RN 06/17/[address] [facility] [address] [place] [address] Linda Holder MD 06/14/2024 4:00 PM CDT Office Visit [facility] [address] [facility] [address] [place] [address] Linda Holder MD Adverse effect of drug, initial encounter (Primary Dx); Seasonal allergic rhinitis due to pollen 05/01/2024 9:00 AM CDT Office Visit [facility] [address] [place] [address] [place] [phone] Linda Holder MD Seasonal allergic rhinitis, unspecified trigger (Primary Dx); Allergy, unspecified, initial encounter; Adverse effect of drug, initial encounter 04/30/[address] 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 Gender Identity Not on file Sexual Orientation Not on file Last Filed Vital Signs Vital Sign Reading Time Taken Comments Blood Pressure 149/79 06/14/2024 3:35 PM CDT Pulse 71 06/14/2024 3:35 PM CDT Temperature 36.8 C (98.2 F) 06/14/2024 3:35 PM CDT Respiratory Rate 18 06/14/2024 3:35 PM CDT Oxygen Saturation 100% 06/14/2024 3:35 PM CDT Inhaled Oxygen Concentration - - Weight 71.2 kg (157 lb) 06/14/2024 3:35 PM CDT Height 160 cm (5' 3 ) 06/14/2024 3:35 PM CDT Body Mass Index 27.81 06/14/2024 3:35 PM CDT Plan of Treatment Not on file Procedures Procedure Name Priority Date/Time Associated Diagnosis Comments ALLERGEN COCKROACH WALLISIAN (INSECT) IGE Routine 06/17/2024 3:03 PM CDT MOUSE (E88) IGE Routine 06/17/2024 3:03 PM CDT ALLERGEN RAT EPITHELIA/SERUM/URINE (ANIMAL) IGE Routine 06/17/2024 3:03 PM CDT ALLERGEN OAK RED (TREE) IGE Routine 06/17/2024 3:03 PM CDT ALLERGEN SPECIFIC IGE MULBERRY RED TREE Routine 06/17/2024 3:03 PM CDT ALLERGEN DERMATOPHAGOIDES FARINAE (INSECT) IGE Routine 06/17/2024 3:03 PM CDT ALLERGEN DERMATOPHAGOIDES PTERONYSSINUS (INSECT) IGE Routine 06/17/2024 3:03 PM CDT ALLERGEN ASPERGILLUS FUMIGATUS (MOLD) IGE Routine 06/17/2024 3:03 PM CDT ALLERGEN CLADOSPORIUM HERBARUM (MOLD) IGE Routine 06/17/2024 3:03 PM CDT ALLERGEN SYCAMORE WALLISIAN (TREE) IGE Routine 06/17/2024 3:03 PM CDT ALLERGEN WALNUT (TREE) IGE Routine 06/17/2024 3:03 PM CDT ALLERGEN ELM (TREE) IGE Routine 06/18/19 3:03 PM CDT ALLERGEN BIRCH (TREE) IGE Routine 06/17/2024 3:03 PM CDT ALLERGEN MAPLE/BOX ELDER (TREE) IGE Routine 06/17/2024 3:03 PM CDT NETTLE (W20) IGE Routine 06/17/2024 3:03 PM CDT ALLERGEN PIGWEED ROUGH (WEED) IGE Routine 06/17/2024 3:03 PM CDT ALLERGEN BEE'S QUARTER/GOOSE FOOT (WEED) IGE Routine 06/17/2024 3:03 PM CDT ALLERGEN PLANTAIN TUVALUAN (WEED) IGE Routine 06/17/2024 3:03 PM CDT ALLERGEN RAGWEED SHORT/COMMON (WEED) IGE Routine 06/17/2024 3:03 PM CDT ALLERGEN JOSEPH GRASS (GRASS) IGE Routine 06/17/2024 3:03 PM CDT ALLERGEN MANUEL GRASS (GRASS) IGE Routine 06/17/2024 3:03 PM CDT ALLERGEN BERMUDA GRASS (GRASS) IGE Routine 06/17/2024 3:03 PM CDT ALLERGEN EPITHELIA/DANDER DOG (ANIMAL) IGE Routine 06/17/2024 3:03 PM CDT ALLERGEN EPITHELIA/DANDER CAT (ANIMAL) IGE Routine 06/17/2024 3:03 PM CDT INTERPRETATION Routine 06/17/2024 3:03 PM CDT ALLERGEN PIGWEED ROUGH (WEED) IGE Routine 05/02/2024 2:52 PM CDT Allergy, unspecified, initial encounter Seasonal allergic rhinitis, unspecified trigger INTERPRETATION Routine 05/02/2024 2:52 PM CDT from Last 3 Months Results * Mouse (E88) IgE (06/17/2024 3:03 PM CDT) Mouse (E88) IgE <0.10 kU/L [facility]N [employer] [facility], Class 0 [facility]/N [facility], Comment: INTERPRETATION SPECIFIC LEVEL OF ALLERGEN IGE CLASS kU/L SPECIFIC IGE ANTIBODY -------- --------- 0 <0.10 ABSENT/UNDETECTABLE 0/1 0.10-0.34 VERY LOW LEVEL 1 0.35-0.69 LOW LEVEL 2 0.70-3.49 MODERATE LEVEL 3 3.50-17.4 HIGH LEVEL 4 17.5-49.9 VERY HIGH LEVEL 5 50-100 VERY HIGH LEVEL 6 >100 VERY HIGH LEVEL The clinical relevance of allergen results of 0.10-0.34 kU/L are undetermined and intended for specialist use. 06/17/2024 3:03 PM CDT 06/17/2024 3:38 PM CDT Linda Holder MD LAB BLOOD ORDERABLES Fin al Result Performing Organization Address [facility]/ZIP Co de Phone Number [facility], [address] [place] [phone] * Nettle (weed) IgE (06/17/2024 3:03 PM CDT) RAST, nettle <0.10 kU/L [facility] Class, Nettle IgE 0 [facility] 06/17/2024 3:03 PM CDT 06/17/2024 3:38 PM CDT Linda Holder MD LAB BLOOD ORDERABLES Fin al Result Performing Organization Address City/[facility] Co de Phone Number [facility] [address] [place] [address] * Allergen Rat epithelia/serum/urine (animal) IgE (06/17/2024 3:03 PM CDT) Epithelia/serum /urine rat IgE <0.10 kU/L [facility], Class epithelia/serum /urine rat IgE 0 [facility], 06/17/2024 3:03 PM CDT 06/17/2024 3:38 PM CDT Linda Holder MD LAB BLOOD ORDERABLES Fin al Result Performing Organization Address [facility]/ZIP Co de Phone Number [facility], [address] [place] [address] * Allergen Bee's quarter/goose foot (weed) IgE (06/17/2024 3:03 PM CDT) Bee's quarter/goose foot <0.10 kU/L [facility] CLASS 0 [facility] 06/17/2024 3:03 PM CDT 06/17/2024 3:38 PM CDT Linda Holder MD LAB BLOOD ORDERABLES Fin al Result [facility] [facility] [address] [place] [address] * Allergen Specific IgE [place] Red Tree (06/17/2024 3:03 PM CDT) Allergen Specific IgE [place] Red Tree <0.10 <0.35 kU/L [facility] [place], White IGG4 Class 0 [facility] Comment: The test method is the [employer] ImmunoCAP allergen-specific IgE system. CLASS INTERPRETATION <0.10 kU/L= 0, Negative; 0.10 - 0.34 kU/L= 0/1, Equivocal/Borderline; 0.35 - 0.69 kU/L=1, Low Positive; 0.70 - 3.49 kU/L=2, Moderate Positive; 3.50 - 17.49 kU/L=3, High Positive; 17.50 - 49.99 kU/L= 4, Very High Positive; 50.00 - 99.99 kU/L= 5, Very High Positive; >99.99 kU/L=6, Very High Positive *This test was developed and its performance characteristics determined by [employer] [facility]. It has not been cleared or approved by the U.S. Food and Drug Administration. FLAG Interpretation: A = Abnormal, H = High, L = Low 06/17/2024 3:03 PM CDT 06/17/2024 3:38 PM CDT Linda Holder MD LAB BLOOD ORDERABLES Fin al Result [facility] [address] [place] [phone] * (ABNORMAL) Allergen Birch (tree) IgE (06/17/2024 3:03 PM CDT) Birch IgE 0.20(H) kU/L [facility] Class, Birch IgE 0/1 [facility] 06/17/2024 3:03 PM CDT 06/17/2024 3:38 PM CDT Linda Holder MD LAB BLOOD ORDERABLES Fin al Result Performing Organization Address [facility] Co de Phone Number [facility] [address] [place] [address] * Allergen Cockroach prydeinig (insect) IgE (06/17/2024 3:03 PM CDT) Cockroach prydeinig IgE <0.10 <0.10 kU/L [facility] [place] Class Cockroach prydeinig IgE 0 0 [facility] [place] Comment: INTERPRETATION SPECIFIC LEVEL OF ALLERGEN IgE CLASS kU/L SPECIFIC IgE ANTIBODY --------- --------- 0 <0.10 Absent/Undetectable 0/1 0.10-0.34 Very [...] analytical performance characteristics have been determined by [facility]. It has not been cleared or approved by the U.S. Food and Drug Administration. The FDA has determined that such clearance or approval is not necessary. This assay has been validated pursuant to the CLIA regulations and is used for clinical purposes. 06/17/2024 3:03 PM CDT 06/17/2024 3:38 PM CDT Linda Holder MD LAB BLOOD ORDERABLES Fin al Result Performing Organization Address City/[facility] Co de Phone Number [facility] [place] [address] [facility] [place], [place] [phone] * (ABNORMAL) Allergen Plantain djiboutian (weed) IgE (06/17/2024 3:03 PM CDT) Plantain djiboutian IgE 0.15(H) kU/L [facility] Class 0/1 [facility] 06/17/2024 3:03 PM CDT 06/17/2024 3:38 PM CDT Linda Holder MD LAB BLOOD ORDERABLES Fin al Result Performing Organization Address [facility] de Phone Number QUE[facility] [address] [place] [address] * Allergen Aspergillus fumigatus (mold) IgE (06/17/2024 3:03 PM CDT) Aspergillus fumigatus IgE <0.10 kU/L [facility] Class 0 [facility] 06/17/2024 3:03 PM CDT 06/17/2024 3:38 PM CDT Linda Holder MD LAB BLOOD ORDERABLES Fin al Result Performing Organization Address [facility] Co de Phone Number QUEST [facility] [address] [place] [address] * (ABNORMAL) Allergen Joseph grass (grass) IgE (06/17/2024 3:03 PM CDT) Joseph grass IgE 0.10(H) kU/L [facility] Class 0/1 [facility] 06/17/2024 3:03 PM CDT 06/17/2024 3:38 PM CDT Linda Holder MD LAB BLOOD ORDERABLES Fin al Result Performing Organization Address [facility] de Phone Number QUEST [facility] [address] [place] [address] * INTERPRETATION (06/17/2024 3:03 PM CDT) Interpretation [facility] Comment: [...] analytical performance characteristics have been determined by [employer]. It has not been cleared or approved by the U.S. Food and Drug Administration. This assay has been validated pursuant to the CLIA regulations and is used for clinical purposes. 06/17/2024 3:03 PM CDT 06/17/2024 3:38 PM CDT Linda Holder MD LAB MICROBIOLOGY - GENER AL ORDERABLES Final Result Performing Organization Address [facility] de Phone Number [facility] [address] [place] [address] * Allergen Bermuda grass (grass) IgE (06/17/2024 3:03 PM CDT) Bermuda grass IgE <0.10 kU/L [facility] Class 0 [facility] 06/17/2024 3:03 PM CDT 06/17/2024 3:38 PM CDT Linda Holder MD LAB BLOOD ORDERABLES Fin al Result Performing Organization Address [facility] Co de Phone Number [facility] [address] [place] [address] * (ABNORMAL) Allergen Elm (tree) IgE (06/17/2024 3:03 PM CDT) Elm IgE 0.55(H) kU/L [facility] Class 1 [facility] 06/17/2024 3:03 PM CDT 06/17/2024 3:38 PM CDT Linda Holder MD LAB BLOOD ORDERABLES Fin al Result Performing Organization Address [facility] de Phone Number QUE[facility] [address] [place] [address] * (ABNORMAL) Allergen Cladosporium herbarum (mold) IgE (06/17/2024 3:03 PM CDT) Cladosporium herbarum IgE 0.15(H) kU/L [facility] Class, Cladosporium herbarum IgE 0/1 [facility] 06/17/2024 3:03 PM CDT 06/17/2024 3:38 PM CDT Linda Holder MD LAB BLOOD ORDERABLES Fin al Result Performing Organization Address [facility] Co de Phone Number [facility] [address] [place] [address] * Allergen Dermatophagoides pteronyssinus (insect) IgE (06/17/2024 3:03 PM CDT) Drmatophyton pteronyssinus IgE <0.10 kU/L [facility] Class 0 [facility] 06/17/2024 3:03 PM CDT 06/17/2024 3:38 PM CDT Linda Holder MD LAB BLOOD ORDERABLES Fin al Result Performing Organization Address [facility] Co de Phone Number [facility] [address] [place] [address] * Allergen Dermatophagoides farniae (insect) IgE (06/17/2024 3:03 PM CDT) Dermatophyton farinae IgE <0.10 kU/L [facility] Class 0 [facility] 06/17/2024 3:03 PM CDT 06/17/2024 3:38 PM CDT Linda Holder MD LAB BLOOD ORDERABLES Fin al Result Performing Organization Address [facility] Co de Phone Number [facility] [address] [place] [address] * (ABNORMAL) Allergen Epithelia/dander dog (animal) IgE (06/17/2024 3:03 PM CDT) Epithelia/dand er dog IgE 5.48(H) kU/L [facility] Clas 3 [facility] 06/17/2024 3:03 PM CDT 06/17/2024 3:38 PM CDT Linda Holder MD LAB BLOOD ORDERABLES Fin al Result Performing Organization Address City/[facility]/ZIP Co de Phone Number [facility] [address] [place] [address] * (ABNORMAL) Allergen Epithelia/dander cat (animal) IgE (06/17/2024 3:03 PM CDT) Epithelia/dand er cat IgE 0.70(H) kU/L [facility] Class 2 [facility] 06/17/2024 3:03 PM CDT 06/17/2024 3:38 PM CDT Linda Holder MD LAB BLOOD ORDERABLES Fin al Result Performing Organization Address [facility] de Phone Number [facility] [address] [place] [address] * (ABNORMAL) Allergen Ragweed short/common (weed) IgE (06/17/2024 3:03 PM CDT) Ragweed common/short IgE 0.16(H) kU/L [facility] Class 0/1 [facility] 06/17/2024 3:03 PM CDT 06/17/2024 3:38 PM CDT Linda Holder MD LAB BLOOD ORDERABLES Fin al Result Performing Organization Address [facility] de Phone Number [facility]ST
== END 2024-06-29 08:12 | disposition home or self-care (01) ==
LOC: ANHIMG 08:13
PROVIDERS: PCP Internal Medicine; Visit Provider Obstetrics & Gynecology
DX: Z12.31 Encounter for screening mammogram for malignant neoplasm of breast (principal)
CPT/HCPCS: 77063; 77067

== ENCOUNTER 2024-07-18 11:48 | Outpatient (CLI) | payer OTHER, SELFPAY ==
--- NOTE | ~2024-07-18 | DEXA_ITS ---
Bone Density Report Name: BARBRA CAGLE Age: 64 Sex: Female Ethnicity: White Date of : 1960 Indication: postmenopausal; screening for osteoporosis; Referring Provider: Contreras Martino Study: Bone densitometry was performed. Exam Date: July 18, 2024 Accession number: [id number] Bone Density: Region BMD T-score Z-score Classification AP Spine(L1-L4) 1.111 0.6 2.2 Normal Femoral Neck (Left) 0.744 -0.9 0.4 Normal Total Hip (Left) 0.977 0.3 1.4 Normal Femoral Neck (Right) 0.725 -1.1 0.3 Osteopenia Total Hip (Right) 0.964 0.2 1.3 Normal Femoral Neck Mean 0.735 -1.0 0.4 Normal Total Hip Mean 0.970 0.2 1.3 Normal World Health Organization criteria for BMD impression classify patients as: Normal (T-score at or above -1.0), Osteopenia (T-score between -1.0 and -2.5), or Osteoporosis (T-score at or below -2.5). Clinical Information Provided by Patient: Has used the following medications: Vitamin D, Calcium Patient maximum height was 63 Menopause Age: 52 No regular weight bearing exercise Drinks caffeinated beverages Onset of menses at age 14 Number of children 2 Impression: The patient has low bone mass, based on the Right Femoral Neck T-score. Discussion: BONE DENSITY IS LOW AT ONE OR MORE SKELETAL SITES. This patient's lowest T-score is low at one or more skeletal sites. It meets the World Health Organization's (WHO) criteria for ?low bone mass? (T-score between -1.0 and -2.5). The patient's 10-year risk of fracture as calculated by FRAX is less than the threshold where pharmacological therapy is recommended by the National Osteoporosis Foundation (NOF). However, all treatment decisions require clinical judgment and consideration of individual patient factors, including patient preferences, comorbidities, previous drug use, risk factors not captured in the FRAX model (e.g., frailty, falls, vitamin D deficiency, increased bone turnover, interval significant decline in bone density) and possible under or overestimation of fracture risk by FRAX. The patient should follow a healthful lifestyle (good nutrition with adequate calcium and vitamin D, and appropriate weight-bearing exercise). Follow-Up: Consider repeating this study in 2 to 3 years to reassess this patient's status, or sooner if there is some new clinical indication. Reported by: AMINA on 07/18/2024 12:07:00 PM. Reviewed, dictated and finalized at location A.
--- OUTSIDE RECORDS SUMMARY | 2024-07-18 12:42 | XMS_ITS | Clinical Summary ---
Author Organization [facility] Address [address], [address] [address] Phone Care Team Providers Care Pediatric Medical Assistant Name Role Phone Alban Stanford Primary Care [...] on file Legal Sex Female 8:25 AM [employer]VE[employer] Gender Identity Not on file Sexual Orientation [...] 9:33 AM CDT Height 160 cm (5' 3) 05/02/2018 9:33 AM CDT Body Mass Index 27.81 05/02/2018 9:33 AM CDT Plan of Treatment Health Maintenance Due Date Last Done Comments Hepatitis C Virus (HCV) Screening 1962 TdaP Immunization 1962 Colonoscopy 2007 Colorectal Cancer Screening 2007 Cologuard 2012 Immunochemical Fecal Occult Blood 2012 Pneumococcal Immunization (5 0+ years) (1 of 1 - PCV) 2012 Zoster Immunization (1 of 2) 2012 SARS-COV-2 Immunization ( - 2023-) 10/15/2023 02/19/2021, 08/14/2020, 07/24/2020 Influenza Immunization (Seas on Ended) 2024 Respiratory Syncytial Virus (RSV) Immunization (Adult) (1 - 1-dose 75+ series) 2037 Hepatitis B Immunization Aged Out No longer eligible based on patient's age to complete this topic Human Papillomavirus (HPV) Immunization Aged Out No longer eligible b ased on patient's age to complete this topic Meningococcal Immunization (ACWY) Aged Out No longer eligible b ased on patient's age to complete this topic Rotavirus Immunization Aged Out No lo nger eligible based on patient's age to complete this topic Insurance [employer]ID [employer] Care Teams Pediatric Medical Assistant Relationship Specialty Start Date End Date Alban Stanford DO [facility] [place] [address] PCP - General Internal Medicine 03/09/18
--- OUTSIDE RECORDS SUMMARY | 2024-07-18 12:42 | XMS_ITS | Clinical Summary ---
Author Organization [facility] Address [facility] [place] [address] Care Team Providers Care Straight Knife Machine Cutter Name Role Phone Alban Stanford DO Primary Care Provider [phone]- [phone] Allergies Active Allergy Reactions Criticality Noted Date [...] (03/06/2020): Added automatically from request for surgery [id number] Encounters Date Type Department Care Team Description 07/03/2024 Results Follow-Up [facility] Allergy and Immunology [address] [place] [address] [place] [phone] Linda Holder MD Allergen Epithelia/dander cat (animal) IgE, Allergen Epithelia/dander dog (animal) IgE, INTERPRETATION, Additional followed-up results: 22 06/27/2024 Telephone [facility] Allergy and Immunology [address] [facility] [address] [place] [phone] Arin Clark RN 06/27/2024 Telephone [facility] Allergy and Immunology [address] [facility] [address] [place] [phone] Arin Clark RN 06/17/2024 Orders Only [facility] Allergy and Immunology [address] [place] [phone] Linda Holder MD 06/14/2024 4:00 PM CDT Office Visit [facility] Allergy and Immunology [address] [place] [phone] Linda Holder MD Adverse effect of drug, initial encounter (Primary Dx); Seasonal allergic rhinitis due to pollen 05/01/2024 9:00 AM CDT Office Visit [facility] Allergy and Immunology [address] [place] [phone] Linda Holder MD Seasonal allergic rhinitis, unspecified trigger (Primary Dx); Allergy, unspecified, initial encounter; Adverse effect of drug, initial encounter 04/30/2024 Telephone [facility] Allergy and Immunology [address] [place] [address] [place] [phone] Nereida Wilkins from Last 3 Months Surgical [...] on file 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 Gender Identity Not on file Sexual Orientation [...] 3:35 PM CDT Height 160 cm (5' 3) 06/14/2024 3:35 PM CDT Body Mass Index [...] Priority Date/Time Associated Diagnosis Comments ALLERGEN COCKROACH MOLDOVAN (INSECT) IGE Routine 06/17/2024 3:03 PM CDT [...] Routine 06/17/2024 3:03 PM CDT ALLERGEN SYCAMORE MOLDOVAN (TREE) IGE Routine 06/17/2024 3:03 PM CDT [...] Routine 06/17/2024 3:03 PM CDT ALLERGEN PLANTAIN HEBREW (WEED) IGE Routine 06/17/2024 3:03 PM CDT ALLERGEN RAGWEED SHORT/COMMON (WEED) IGE Routine 06/17/2024 3:03 PM CDT ALLERGEN ULISES GRASS (GRASS) IGE Routine 06/17/2024 3:03 PM CDT ALLERGEN ALVERTO GRASS (GRASS) IGE Routine 06/17/2024 3:03 PM [...] (E88) IgE <0.10 kU/L [facility]/N [facility], Class 0 [facility], Comment: INTERPRETATION SPECIFIC LEVEL OF ALLERGEN IGE [...] ORDERABLES Fin al Result Performing Organization Address City/[facility]/ZIP Co de Phone Number [facility]/Mina [facility], [address] [place] [address] * Nettle (weed) IgE (06/17/2024 3:03 PM CDT) RAST, nettle <0.10 kU/L [facility] Class, Nettle IgE 0 [facility] 06/17/2024 3:03 PM CDT 06/17/2024 3:38 PM CDT Linda Holder MD LAB BLOOD ORDERABLES Fin al Result [facility] [address] [place] [address] * Allergen Rat epithelia/serum/urine (animal) IgE (06/17/2024 3:03 PM CDT) Epithelia/serum /urine rat IgE <0.10 kU/L [facility] [employer] [facility], Class epithelia/serum /urine rat IgE 0 [facility] [employer] [facility], 06/17/2024 3:03 PM CDT 06/17/2024 3:38 PM CDT Linda Holder MD LAB BLOOD ORDERABLES Fin al Result [facility]/Kee[facility], [address] [place] [address] * Allergen Bee's quarter/goose foot (weed) IgE (06/17/2024 3:03 PM CDT) Bee's quarter/goose foot <0.10 kU/L [facility] CLASS 0 [facility] 06/17/2024 3:03 PM CDT 06/17/2024 3:38 PM CDT Linda Holder MD LAB BLOOD ORDERABLES Fin al Result Performing Organization Address City/[facility]/ZIP Co de Phone Number [facility] [address] [place] [address] * Allergen Specific IgE [place] Red Tree (06/17/2024 3:03 PM CDT) Allergen Specific IgE [place] <0.10 <0.35 kU/L [facility] Longs, White IGG4 Class 0 [facility] Comment: The test method is the [employer] ImmunoCAP allergen-specific IgE system. CLASS INTERPRETATION <0.10 [...] developed and its performance characteristics determined by [employer]. It has not been cleared or approved by the U.S. Food and Drug Administration. FLAG Interpretation: A = Abnormal, H = High, L = Low 06/17/2024 3:03 PM CDT 06/17/2024 3:38 PM CDT Linda Hloder MD LAB BLOOD ORDERABLES Fin al Result Performing Organization Address City/[facility]/ZIP Co de Phone Number [facility] [address] [phone] * (ABNORMAL) Allergen Birch (tree) IgE (06/17/2024 3:03 PM CDT) Birch IgE 0.20(H) kU/L [facility] Class, Birch IgE 0/1 [facility] 06/17/2024 3:03 PM CDT 06/17/2024 3:38 PM CDT Linda Holder MD LAB BLOOD ORDERABLES Fin al Result Performing Organization Address [facility] Co de Phone Number [facility] [address] [place] [address] * Allergen Cockroach citizen [place] (insect) IgE (06/17/2024 3:03 PM CDT) Cockroach citizen [place] IgE <0.10 <0.10 kU/L [facility]/N [facility] [facility] [place] Class Cockroach citizen [place] IgE 0 0 [facility]/N [facility] [place] [place] Comment: INTERPRETATION SPECIFIC LEVEL OF ALLERGEN IgE [...] analytical performance characteristics have been determined by [facility]. It has not been cleared or approved by the U.S. Food and Drug Administration. The FDA has determined that such clearance or approval is not necessary. This assay has been validated pursuant to the CLIA regulations and is used for clinical purposes. 06/17/2024 3:03 PM CDT 06/17/2024 3:38 PM CDT Linda Holder MD LAB BLOOD ORDERABLES Fin al Result [facility] [address] [facility] [place] [address] * (ABNORMAL) Allergen Plantain moldovan (weed) IgE (06/17/2024 3:03 PM CDT) Plantain moldovan IgE 0.15(H) kU/L [facility] Class 0/1 [facility] 06/17/2024 3:03 PM CDT 06/17/2024 3:38 PM CDT Linda Holder MD LAB BLOOD ORDERABLES Fin al Result [facility] [address] [place] [address] * Allergen Aspergillus fumigatus (mold) IgE (06/17/2024 3:03 PM CDT) Aspergillus fumigatus IgE <0.10 kU/L [facility] Class 0 [facility] 06/17/2024 3:03 PM CDT 06/17/2024 3:38 PM CDT Linda Holder MD LAB BLOOD ORDERABLES Fin al Result Performing Organization Address [facility] de Phone Number [facility] [address] [place] [address] * (ABNORMAL) Allergen Ulises grass (grass) IgE (06/17/2024 3:03 PM CDT) Ulises grass IgE 0.10(H) kU/L [facility] Class 0/1 [facility] 06/17/2024 3:03 PM CDT 06/17/2024 3:38 PM CDT Linda Holder MD LAB BLOOD ORDERABLES Fin al Result Performing Organization Address [facility] Phone Number [facility] [address] [place] [address] * INTERPRETATION (06/17/2024 3:03 PM CDT) Pathologist [facility] Interpretation [facility] Comment: Specific Level [...] analytical performance characteristics have been determined by [facility]. It has not been cleared or approved by the U.S. Food and Drug Administration. This assay has been validated pursuant to the CLIA regulations and is used for clinical purposes. 06/17/2024 3:03 PM CDT 06/17/2024 3:38 PM CDT Linda Holder MD LAB MICROBIOLOGY - GENER AL ORDERABLES Final Result Performing Organization Address [facility] Co de Phone Number [facility] [address] [place] [address] * Allergen Bermuda grass (grass) IgE (06/17/2024 3:03 PM CDT) [place] grass IgE <0.10 kU/L [facility] Class 0 [facility] 06/17/2024 3:03 PM CDT 06/17/2024 3:38 PM CDT Linda Holder MD LAB BLOOD ORDERABLES Fin al Result Performing Organization Address [facility] Co de Phone Number [facility] [address] [place] [address] * (ABNORMAL) Allergen Elm (tree) IgE (06/17/2024 3:03 PM CDT) Elm IgE 0.55(H) kU/L [facility] Class 1 [facility] 06/17/2024 3:03 PM CDT 06/17/2024 3:38 PM CDT Linda Holder MD LAB BLOOD ORDERABLES Fin al Result Performing Organization Address [facility] Co de Phone Number [facility] [address] [place] [address] * (ABNORMAL) Allergen Cladosporium herbarum (mold) IgE (06/17/2024 3:03 PM CDT) Cladosporium herbarum IgE 0.15(H) kU/L [facility] Class, Cladosporium herbarum IgE 0/1 [facility] 06/17/2024 3:03 PM CDT 06/17/2024 3:38 PM CDT Linda Holder MD LAB BLOOD ORDERABLES Fin al Result Performing Organization Address [facility] Co de Phone Number [facility] [address] [place] [address] * Allergen Dermatophagoides pteronyssinus (insect) IgE (06/17/2024 3:03 PM CDT) Drmatophyton pteronyssinus IgE <0.10 kU/L [facility] Class 0 [facility] 06/17/2024 3:03 PM CDT 06/17/2024 3:38 PM CDT Linda Holder MD LAB BLOOD ORDERABLES Fin al Result Performing Organization Address [facility] de Phone Number [facility] [address] [place] [address] * Allergen Dermatophagoides farniae (insect) IgE (06/17/2024 3:03 PM CDT) Dermatophyton farinae IgE <0.10 kU/L [facility] Class 0 [facility] 06/17/2024 3:03 PM CDT 06/17/2024 3:38 PM CDT Linda Holder MD LAB BLOOD ORDERABLES Fin al Result Performing Organization Address [facility] Co de Phone Number [facility] [address] [place] [address] * (ABNORMAL) Allergen Epithelia/dander dog (animal) IgE (06/17/2024 3:03 PM CDT) Epithelia/dand er dog IgE 5.48(H) kU/L [facility] Clas 3 [facility] 06/17/2024 3:03 PM CDT 06/17/2024 3:38 PM CDT Linda Holder MD LAB BLOOD ORDERABLES Fin al Result Performing Organization Address [facility] Co de Phone Number [facility] [address] [place] [address] * (ABNORMAL) Allergen Epithelia/dander cat (animal) IgE (06/17/2024 3:03 PM CDT) Epithelia/dand er cat IgE 0.70(H) kU/L [facility] Class 2 [facility] 06/17/2024 3:03 PM CDT 06/17/2024 3:38 PM CDT Linda Holder MD LAB BLOOD ORDERABLES Fin al Result Performing Organization Address [facility] de Phone Number [facility] [address] [place] [address] * (ABNORMAL) Allergen Ragweed short/common (weed) IgE (06/17/2024 3:03 PM CDT) Ragweed common/short IgE 0.16(H) kU/L [facility] Class 0/1 [facility] 06/17/2024 3:03 PM CDT 06/17/2024 3:38 PM CDT Linda Holder MD LAB BLOOD ORDERABLES Fin al Result Performing Organization Address [facility] Co de Phone Number [facility] [address] [facility] [place] [address] * (ABNORMAL) Allergen Pigweed, rough (weed) IgE (06/17/2024 3:03 PM CDT) Pigweed rough IgE 0.12(H) kU/L [facility] Class 0/1 [facility] 06/17/2024 3:03 PM CDT 06/17/2024 3:38 PM CDT us Linda Holder MD LAB BLOOD ORDERABLES Fin al Result Performing Organization Address City/[facility]/ZIP Co de Phone Number [facility] [address] [place] [address] * (ABNORMAL) Allergen Alverto grass (grass) IgE (06/17/2024 3:03 PM CDT) Alverto grass IgE 0.29(H) kU/L [facility] Class 0/1 [facility] 06/17/2024 3:03 PM CDT 06/17/2024 3:38 PM CDT Linda Holder MD LAB BLOOD ORDERABLES Fin al Result Performing Organization Address [facility] Co de Phone Number [facility] [address] [place] [address] * (ABNORMAL) Allergen Edna (tree) IgE (06/17/2024 3:03 PM CDT) Edna (tree) IgE 0.23(H) kU/L [facility] CLASS 0/1 [facility] 06/17/2024 3:03 PM CDT 06/17/2024 3:38 PM CDT Linda Holder MD LAB BLOOD ORDERABLES Fin al Result Performing Organization Address City/[facility]/ZIP Co de Phone Number [facility] [address] [place] [address] * (ABNORMAL) Allergen [place] citizen [place] (tree) IgE (06/17/2024 3:03 PM CDT) Pathologist [facility] [place] IgE 0.15(H) kU/L [facility] Class, [place] IgE 0/1 [facility] 06/17/2024 3:03 PM CDT 06/17/2024 3:38 PM CDT Linda Holder MD LAB BLOOD ORDERABLES Fin al Result Performing Organization Address [facility]/ZIP Co de Phone Number [facility] [address] [place] [address] * (ABNORMAL) Allergen Maple/Box elder (tree) IgE (06/17/2024 3:03 PM CDT) Pathologist [facility] Maple/box elder IgE 0.10(H) kU/L [facility] Class, Maple/box elder IgE 0/1 [facility] 06/17/2024 3:03 PM CDT 06/17/2024 3:38 PM CDT Linda Holder MD LAB BLOOD ORDERABLES Fin al Result Performing Organization Address [facility] Co de Phone Number [facility] [address] [place] [address] * (ABNORMAL) Allergen Longs red (tree) IgE (06/17/2024 3:03 PM CDT) Allergen Specific IgE [place] (Q. rubra) 0.86(H) <0.35 kU/L [facility] Class 2 [facility] Comment: CLASS INTERPRETATION: <0.35 kU/L=0, Below Detection; 0.35-0.69 kU/L= 1, Low Positive; 0.70-3.49 kU/L= 2, Moderate Positive; 3.50-17.49 kU/L= 3, Positive; 17.50-49.99 kU/L= 4, Strong Positive; >49.99 kU/L= 5, Very Strong Positive FLAG Interpretation: A = Abnormal, H = High, L = Low 06/17/2024 3:03 PM CDT 06/17/2024 3:38 PM CDT Linda Holder MD LAB BLOOD ORDERABLES Fin al Result Performing Organization Address [facility] Co de Phone Number [facility] [address] [address] * INTERPRETATION (05/02/2024 2:52 PM CDT) Interpretation [facility] Comment: Specific Level of Allergen IGE [...] analytical performance characteristics have been determined by [facility]. It has not been cleared or approved by the U.S. Food and Drug Administration. This assay has been validated pursuant to the CLIA regulations and is used for clinical purposes. 05/02/2024 2:52 PM CDT 05/02/2024 2:52 PM CDT Linda Holder MD LAB MICROBIOLOGY - GENER AL ORDERABLES Final Result Performing Organization Address [facility] Co de Phone Number [facility] [address] [place] [address] * (ABNORMAL) Allergen Pigweed, rough (weed) IgE (05/02/2024 2:52 PM CDT) Pigweed rough IgE 0.12(H) kU/L [facility] Class 0/1 [facility] Blood 05/02/2024 2:52 PM CDT 05/02/2024 2:52 PM CDT Linda Holder MD LAB BLOOD ORDERABLES Fin al Result [facility] [address] [place] [address] from Last 3 Months Insurance [facility] Care Teams Straight Knife Machine Cutter Relationship Specialty Start Date End Date Alban Stanford DO PCP - General 05/13/16
--- OUTSIDE RECORDS SUMMARY | 2024-07-18 12:42 | XMS_ITS | Encounter Summary ---
Author Organization [facility] Address [address] [place] [address] Phone Care Team Providers Care Senior Asic Engineer Name Role Phone Alban Stanford DO Primary Care Provider [phone]- [phone] Encounter Details Date Type Department Care Team (Late st Contact Info) Description 07/03/2024 Results Follow-Up [facility] Allergy and Immunology [address] [facility] [address] [place] [address] Linda Holder MD [address] [place] [address] Allergen Epithelia/dander cat (animal) IgE, Allergen Epithelia/dander dog (animal) IgE, INTERPRETATION, Additional followed-up results: 22 Social History Tobacco Use Types Packs/Day Years [...] on file 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
--- OUTSIDE RECORDS SUMMARY | 2024-07-18 12:43 | XMS_ITS | Referral Summary ---
Author Organization [facility] Address [facility] [place] [address] Care Team Providers Care Cable Installation Manager Name Role Phone Alban Stanford DO Primary Care Provider [phone]- [phone] Encounters Date Type Department Care Team Description 07/03/2024 Results Follow-Up [facility] [address] [place] [address] [place] [phone] Linda Holder MD Allergen Epithelia/dander cat (animal) IgE, Allergen Epithelia/dander dog (animal) IgE, INTERPRETATION, Additional followed-up results: 22 06/27/2024 Telephone [facility] [address] [place] [phone] Arin Clark RN 06/27/2024 Telephone [facility] [address] [phone] Arin Clark RN 06/17/2024 Orders Only [facility] [address] [place] [phone] Linda Holder MD 06/14/2024 4:00 PM CDT Office Visit [facility] [address] [place] [phone] Linda Holder MD Adverse effect of drug, initial encounter (Primary Dx); Seasonal allergic rhinitis due to pollen 05/01/2024 9:00 AM CDT Office Visit [facility] [address] [facility] [address] [place] [address] Linda Holder MD Seasonal allergic rhinitis, unspecified trigger (Primary Dx); Allergy, unspecified, initial encounter; Adverse effect of drug, initial encounter 04/30/2024 Telephone [facility] [address] [facility] [address] [place] [address] SaigeandiNereida from Last 3 Months Allergies Active Allergy [...] (03/06/2020): Added automatically from request for surgery [id number] Social History Tobacco Use Types Packs/Day Years [...] on file 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..] LAB BLOOD ORDERABLES Fin al Result [facility] [facility], [address] [place] [address] * Nettle (weed) IgE (06/17/2024 3:03 PM CDT) RAST, nettle <0.10 kU/L [facility] Class, Nettle IgE 0 [facility] 06/17/2024 3:03 PM CDT 06/17/2024 3:38 PM CDT Linda Holder MD LAB BLOOD ORDERABLES Fin al Result [facility] [address] [place] [address] * Allergen Rat epithelia/serum/urine (animal) IgE (06/17/2024 3:03 PM CDT) Epithelia/serum /urine rat IgE <0.10 kU/L [facility], Class epithelia/serum /urine rat IgE 0 [facility], 06/17/2024 3:03 PM CDT 06/17/2024 3:38 PM CDT Linda Holder MD LAB BLOOD ORDERABLES Fin al Result [facility], [address] [place] [address] * Allergen Bee's quarter/goose foot (weed) IgE (06/17/2024 3:03 PM CDT) Bee's quarter/goose foot <0.10 kU/L [facility] CLASS 0 [facility] 06/17/2024 3:03 PM CDT 06/17/2024 3:38 PM CDT Lidna Holder MD LAB BLOOD ORDERABLES Fin al Result Performing Organization Address City/[facility]/ZIP Co de Phone Number [facility] [address] [place] [address] * Allergen Specific IgE [place] Red Tree (06/17/2024 3:03 PM CDT) Allergen Specific IgE [place] Red Tree <0.10 <0.35 kU/L [facility] Achille, White IGG4 Class 0 [facility] Comment: The test method is the Central Desktop ImmunoCAP allergen-specific IgE system. CLASS INTERPRETATION <0.10 [...] developed and its performance characteristics determined by [employer]. It has not been cleared or approved by the U.S. Food and Drug Administration. FLAG Interpretation: A = Abnormal, H = High, L = Low 06/17/2024 3:03 PM CDT 06/17/2024 3:38 PM CDT Linda Holder MD LAB BLOOD ORDERABLES Fin al Result [facility] [address] [place] [phone] * (ABNORMAL) Allergen Birch (tree) IgE (06/17/2024 3:03 PM CDT) Birch IgE 0.20(H) kU/L [facility] Class, Birch IgE 0/1 [facility] 06/17/2024 3:03 PM CDT 06/17/2024 3:38 PM CDT Linda Holder MD LAB BLOOD ORDERABLES Fin al Result Performing Organization Address [facility] Co de Phone Number [facility] [address] [place] [address] * Allergen Cockroach burkinan (insect) IgE (06/17/2024 3:03 PM CDT) Cockroach burkinan IgE <0.10 <0.10 kU/L [facility] Class Cockroach burkinan IgE 0 0 [facility] Comment: INTERPRETATION SPECIFIC LEVEL OF ALLERGEN [...] analytical performance characteristics have been determined by [employer]. It has not been cleared or approved by the U.S. Food and Drug Administration. The FDA has determined that such clearance or approval is not necessary. This assay has been validated pursuant to the CLIA regulations and is used for clinical purposes. 06/17/2024 3:03 PM CDT 06/17/2024 3:38 PM CDT Linda Holder MD LAB BLOOD ORDERABLES Fin al Result Performing Organization Address City/[facility] Co de Phone Number [facility] [address] [facility] [address] [place] [address] * (ABNORMAL) Allergen Plantain libyan (weed) IgE (06/17/2024 3:03 PM CDT) Plantain libyan IgE 0.15(H) kU/L [facility] Class 0/1 [facility] 06/17/2024 3:03 PM CDT 06/17/2024 3:38 PM CDT Linda Holder MD LAB BLOOD ORDERABLES Fin al Result Performing Organization Address [facility] de Phone Number [facility] [address] [place] [address] * Allergen Aspergillus fumigatus (mold) IgE (06/17/2024 3:03 PM CDT) Aspergillus fumigatus IgE <0.10 kU/L [facility] Class 0 [facility] 06/17/2024 3:03 PM CDT 06/17/2024 3:38 PM CDT Linda Holder MD LAB BLOOD ORDERABLES Fin al Result Performing Organization Address [facility] de Phone Number [employer] [facility] [address] [place] [address] * (ABNORMAL) Allergen Ulises grass (grass) IgE (06/17/2024 3:03 PM CDT) Ulises grass IgE 0.10(H) kU/L [facility] Class 0/1 [facility] 06/17/2024 3:03 PM CDT 06/17/2024 3:38 PM CDT Linda Holder MD LAB BLOOD ORDERABLES Fin al Result Performing Organization Address City/[facility]/ZIP Co de Phone Number [facility] [address] [place] [address] * INTERPRETATION (06/17/2024 3:03 PM CDT) Interpretation [...] analytical performance characteristics have been determined by [employer]. It has not been cleared or approved by the U.S. Food and Drug Administration. This assay has been validated pursuant to the CLIA regulations and is used for clinical purposes. 06/17/2024 3:03 PM CDT 06/17/2024 3:38 PM CDT Linda Holder MD LAB MICROBIOLOGY - [facility] ORDERABLES Final Result Performing Organization Address [facility] Co de Phone Number [employer] [facility] [address] [place] [address] * Allergen Bermuda grass (grass) IgE (06/17/2024 3:03 PM CDT) Bermuda grass IgE <0.10 kU/L [facility] Class 0 [facility] 06/17/2024 3:03 PM CDT 06/17/2024 3:38 PM CDT Linda Holder MD LAB BLOOD ORDERABLES Fin al Result Performing Organization Address [facility] de Phone Number [facility] [address] [place] [address] * (ABNORMAL) Allergen Elm (tree) IgE (06/17/2024 3:03 PM CDT) Elm IgE 0.55(H) kU/L [facility] Class 1 [facility] 06/17/2024 3:03 PM CDT 06/17/2024 3:38 PM CDT Linda Holder MD LAB BLOOD ORDERABLES Fin al Result Performing Organization Address [facility] de Phone Number [facility] [address] [place] [address] * (ABNORMAL) Allergen Cladosporium herbarum (mold) IgE (06/17/2024 3:03 PM CDT) Cladosporium herbarum IgE 0.15(H) kU/L [facility] Class, Cladosporium herbarum IgE 0/1 [facility] 06/17/2024 3:03 PM CDT 06/17/2024 3:38 PM CDT Linda Holder MD LAB BLOOD ORDERABLES Fin al Result Performing Organization Address [facility] de Phone Number [facility] [address] [place] [address] * Allergen Dermatophagoides pteronyssinus (insect) IgE (06/17/2024 3:03 PM CDT) Drmatophyton pteronyssinus IgE <0.10 kU/L [facility] Class 0 [facility] 06/17/2024 3:03 PM CDT 06/17/2024 3:38 PM CDT Linda Holder MD LAB BLOOD ORDERABLES Fin al Result Performing Organization Address [facility] de Phone Number [facility] [address] [place] [address] * Allergen Dermatophagoides farniae (insect) IgE (06/17/2024 3:03 PM CDT) Dermatophyton farinae IgE <0.10 kU/L [facility] Class 0 [facility] 06/17/2024 3:03 PM CDT 06/17/2024 3:38 PM CDT Linda Holder MD LAB BLOOD ORDERABLES Fin al Result Performing Organization Address [facility] de Phone Number [facility] [address] [place] [address] * (ABNORMAL) Allergen Epithelia/dander dog (animal) IgE (06/17/2024 3:03 PM CDT) Epithelia/dand er dog IgE 5.48(H) kU/L [facility] Clas 3 [facility] 06/17/2024 3:03 PM CDT 06/17/2024 3:38 PM CDT Linda Holder MD LAB BLOOD ORDERABLES Fin al Result Performing Organization Address [facility] de Phone Number [facility] [address] [place] [address] * (ABNORMAL) Allergen Epithelia/dander cat (animal) IgE (06/17/2024 3:03 PM CDT) Epithelia/dand er cat IgE 0.70(H) kU/L [facility] Class 2 [facility] 06/17/2024 3:03 PM CDT 06/17/2024 3:38 PM CDT Linda Holder MD LAB BLOOD ORDERABLES Fin al Result Performing Organization Address [facility] de Phone Number [facility] [address] [place] [address] * (ABNORMAL) Allergen Ragweed short/common (weed) IgE (06/17/2024 3:03 PM CDT) Ragweed common/short IgE 0.16(H) kU/L [facility] Class 0/1 [facility] 06/17/2024 3:03 PM CDT 06/17/2024 3:38 PM CDT Linda Holder MD LAB BLOOD ORDERABLES Fin al Result Performing Organization Address [facility] de Phone Number [facility] [address] [place] [address] * (ABNORMAL) Allergen Pigweed, rough (weed) IgE (06/17/2024 3:03 PM CDT) Pigweed rough IgE 0.12(H) kU/L [facility] Class 0/1 [facility] 06/17/2024 3:03 PM CDT 06/17/2024 3:38 PM CDT Linda Holder MD LAB BLOOD ORDERABLES Fin al Result Performing Organization Address [facility] de Phone Number [facility] [address] [place] [address] * (ABNORMAL) Allergen Alverto grass (grass) IgE (06/17/2024 3:03 PM CDT) Alverto grass IgE 0.29(H) kU/L [facility] Class 0/1 [facility] 06/17/2024 3:03 PM CDT 06/17/2024 3:38 PM CDT Linda Holder MD LAB BLOOD ORDERABLES Fin al Result Performing Organization Address [facility] Co de Phone Number [facility] [address] [place] [address] * (ABNORMAL) Allergen [place] (tree) IgE (06/17/2024 3:03 PM CDT) [place] (tree) IgE 0.23(H) kU/L [facility] CLASS 0/1 [facility] 06/17/2024 3:03 PM CDT 06/17/2024 3:38 PM CDT Linda Holder MD LAB BLOOD ORDERABLES Fin al Result Performing Organization Address [facility] de Phone Number [facility] [address] [place] [address] * (ABNORMAL) Allergen [place] burkinan (tree) IgE (06/17/2024 3:03 PM CDT) [place] IgE 0.15(H) kU/L [facility] Class, [place] IgE 0/1 [facility] 06/17/2024 3:03 PM CDT 06/17/2024 3:38 PM CDT Linda Holder MD LAB BLOOD ORDERABLES Fin al Result Performing Organization Address [facility] Co de Phone Number [employer] [facility] [address] [place] [address] * (ABNORMAL) Allergen Maple/Box elder (tree) IgE (06/17/2024 3:03 PM CDT) Maple/box elder IgE 0.10(H) kU/L [facility] Class, Maple/box elder IgE 0/1 [facility] 06/17/2024 3:03 PM CDT 06/17/2024 3:38 PM CDT Linda Holder MD LAB BLOOD ORDERABLES Fin al Result Performing Organization Address [facility] Co de Phone Number [facility] [address] [place] [address] * (ABNORMAL) Allergen Achille red (tree) IgE (06/17/2024 3:03 PM CDT) Allergen Specific IgE [place] (Q. rubra) 0.86(H) <0.35 kU/L [employer] [facility] [...] ORDERABLES Fin al Result Performing Organization Address City/[facility] Co de Phone Number [facility] [address] [address] * INTERPRETATION (05/02/2024 2:52 PM CDT) Interpretation [...] analytical performance characteristics have been determined by [employer]. It has not been cleared or approved by the U.S. Food and Drug Administration. This assay has been validated pursuant to the CLIA regulations and is used for clinical purposes. 05/02/2024 2:52 PM CDT 05/02/2024 2:52 PM CDT Linda Holder MD LAB MICROBIOLOGY - GENER AL ORDERABLES Final Result Performing Organization Address [facility] Co de Phone Number [facility] [address] [place] [address] * (ABNORMAL) Allergen Pigweed, rough (weed) IgE (05/02/2024 2:52 PM CDT) Pigweed rough IgE 0.12(H) kU/L [facility] Class 0/1 [facility] Blood 05/02/2024 2:52 PM CDT 05/02/2024 2:52 PM CDT Linda Holder MD LAB BLOOD ORDERABLES Fin al Result Performing Organization Address [facility] Co de Phone Number [employer] [facility] [address] [place] [address] from Last 3 Months Insurance [facility] Care Teams Cable Installation Manager Relationship Specialty Start Date End Date Alban Stanford DO PCP - General 05/13/16
== END 2024-07-18 11:49 | disposition home or self-care (01) ==
PROVIDERS: PCP Internal Medicine; Visit Provider Obstetrics & Gynecology
DX: Z78.0 Asymptomatic menopausal state (principal); M85.88 Other specified disorders of bone density and structure, other site
CPT/HCPCS: 77080